=== PATIENT | female | born 1980 | race African-American/Black ===

== ENCOUNTER 2020-10-27 16:14 | Outpatient (REF) | payer OTHER, SELFPAY | END 2020-10-27 16:15 | disposition home or self-care (01) | LOC: HO.LAB 16:14 | PROVIDERS: PCP Internal Medicine; Visit Provider Internal Medicine | DX: Z20.828 Contact with and (suspected) exposure to other viral communicable diseases (principal) | CPT/HCPCS: C9803; U0003 ==

== ENCOUNTER 2020-11-05 11:30 | Outpatient (REF) | payer MEDICAID, SELFPAY | END 2020-11-05 11:31 | disposition home or self-care (01) | LOC: HO.LAB 11:30 | PROVIDERS: Visit Provider Internal Medicine | DX: Z20.828 Contact with and (suspected) exposure to other viral communicable diseases (principal) | CPT/HCPCS: C9803; U0003 ==

== ENCOUNTER 2021-04-12 22:51 | Emergency (ER) | payer OTHER, SELFPAY ==
--- NOTE | 2021-04-12 | ECG_ITS ---
Test Reason : CHEST PAIN Blood Pressure : / mmHG Vent. Rate : 071 BPM Atrial Rate : 071 BPM P-R Int : 138 ms QRS Dur : 074 ms QT Int : 392 ms P-R-T Axes : 064 010 003 degrees QTc Int : 425 ms Normal sinus rhythm Normal ECG When compared to the previous EKG of No significant changes seen Referred By: Damion Granados Electronically Signed By:Jorge Chapman
--- NOTE | ~2021-04-12 | XR_ITS ---
EXAMINATION: XR CHEST CLINICAL INFORMATION: Chest pain. COMPARISON: Most recent chest radiograph dated 02/13/2012. TECHNIQUE: Frontal view of the chest was obtained. FINDINGS: The lungs are clear. The cardiomediastinal silhouette is normal in size. There is no pleural effusion or pneumothorax. No acute osseous abnormality. XR/XR chest 1V IMPRESSION: No acute cardiopulmonary findings.
[2021-04-12 23:08] VITALS: BP 128/86; PULSE 86; RESP 18; TEMP 37.2; O2SAT 98; BMI 32.3
--- NOTE | 2021-04-12 23:38 | ED_ITS ---
HPI - Chest Pain General Chief Complaint: Chest Pain Stated Complaint: chest pain Time Seen by Provider: 04/12/21 23:38 Source: patient Mode of arrival: ambulatory Limitations: no limitations History of Present Illness HPI narrative: 40 year-old female came in for evaluation of chest pain. Pain started since 11:00 (greater than 12 hours ago), patient is mostly localized at the midsternum, patient also been having a right sided chest pain that radiates down to the right arm, pain is described as constant for the last 12 hours, severe 7/10, taking a deep breath making the pain worse, nothing relieves the pain. Patient had similar pain in the past seen by ED and was told costochondritis. Patient also was seen today at Urgent Care and she was advised to come to the emergency department for further evaluation. No personal or family history of PE/DVT, no recent travel or prolonged immobilization, no lower extremity swelling or tenderness. No family history of young age or MIs at young ages. Related Data Allergies Allergy/AdvReac Type Severity Reaction Status Date / Time No Known Allergies Allergy Verified 04/12/21 23:08 Review of Systems Review of Systems: All other systems are reviewed and are negative Constitutional: Reports as per HPI and Reports no additional constitutional complaints Eyes: Reports as per HPI and Reports no additional eye complaints Reports system reviewed and no additional complaints, except as documented Cardiovascular: Reports as per HPI and Reports no additional cardiovascular complaints Respiratory: Reports as per HPI and Reports no additional respiratory complaints Gastrointestinal: Reports as per HPI and Reports no additional gastrointestinal complaints Genitourinary: Reports no additional female genitourinary complaints Musculoskeletal: Reports no additional musculoskeletal complaints Skin/Breast: Reports system reviewed and no additional complaints, except as docu Psychiatric: Reports no additional psychiatric complaints Endocrine: Reports no additional endocrine complaints Hematologic/Lymphatic: Reports no additional hematologic/lymphatic complaints Allergic/Immunologic: Reports no additional allergic/immunologic complaints Reports system reviewed and no additional complaints, except as documented and Reports Abnormal speech present PMFSH Social History Social History Advance Directives: No Advance Directives Information Provided: No Patient : No Physical Exam Vital Signs: Vital Signs: Last Vital Signs Temp 98.9 F 04/12/21 23:08 Pulse 86 04/12/21 23:08 Resp 18 04/12/21 23:08 BP 128/86 04/12/21 23:08 Pulse Ox 98 04/12/21 23:08 Body Mass Index 32.3 Vital signs have been reviewed as appeared to be correct. Blood pressure normal. Heart rate normal. Respiration rate normal. Temperature normal. Oxygen saturation normal. Appearance: Alert. Oriented X3. No acute distress. Head: Normal external exam. Normocephalic. Atraumatic. No Schulz signs noted. No raccoon eyes noted Eyes: PERRLA. EOMI. Conjunctiva and sclera normal. Eyelids normal. ENT: TM's Normal. Pharynx normal. Uvula midline. Moist mucous membranes. No trismus noted. No drooling noted. No muffled voice noted. Neck: Normal inspection. Neck supple. FROM. No adenopathy. Thyroid Normal. No meningeal signs. No neck mass noted. CVS: Normal heart rate and rhythm. Heart sound normal. No murmurs noted. Pulses normal throughout. Respiratory: No respiratory distress. Painless inspiration. Breath sounds normal. No wheezes/rales/rhonchi noted. Chest noted to be tender on the mid sternum and on the right side of the sternum. No accessory muscle usage noted or decreased air movement noted. Abdomen: Soft and nontender. Bowel sounds normal in all 4 quadrants. No disten tion noted. No organomegaly noted. No visible injury noted. Back: No CVA tenderness. Full range of motion noted. Skin: Skin warm and dry. Normal skin color. Normal skin turgor. No rashes/lesions/lacerations noted. Extremities: No lower extremity edema. Extremities exhibit normal range of mo tion. Extremities nontender. Neuro: Oriented X 3. No motor deficit. No sensory deficit. Reflexes normal. Course Course Course Narrative: Assessment and plan. 40-year-old female came in with chest pain for greater than 12 hours pain is with taking a deep breath but it is constant, there is reproducible pain on the front of the chest consistent with costochondritis. Patient has HEART score of 0, very low risk for PE was slight elevation of D- dimer still within normal value. Advised the patient to start an NSAIDs and follow-up with PCP. [facility] - Chest Pain Lab Data Attestation: I reviewed the patient's lab results. Result diagrams: 04/12/21 23:42 04/12/21 23:42 Labs: Lab Results 04/12/21 04/12/21 04/12/21 Range/Units 23:42 23:42 23:42 WBC 5.7 (4.8-10.8) X10*3/uL RBC 4.05 L (4.20-5.50) X10*6/uL Hgb 12.6 (12.0-16.0) g/dl Hct 38.8 (37-47) % MCV 95.8 (80-98) fL MCH 31.1 (27.0-33.0) pg MCHC 32.5 (31.0-35.0) g/dl RDW 11.9 (11.0-16.0) % Plt Count 283 (160-400) X10*3/uL MPV 9.4 (9.4-12.3) fL Immature Gran % (Auto) 0.0 (0.0-0.4) % Neut % (Auto) 32.1 L (45-73) % Lymph % (Auto) 56.7 H (20-40) % [place] % (Auto) 8.6 (2-11) % Eos % (Auto) 1.9 (0-4) % Baso % (Auto) 0.7 (0-2) % Lymph # (Auto) 3.2 (1.2-4.9) X10*3/uL [place] # (Auto) 0.5 (0.1-1.2) X10*3/uL Eos # (Auto) 0.1 (0.0-0.4) X10*3/uL Baso # (Auto) 0.0 (0.0-0.2) X10*3/uL Abs Immat Gran (auto) 0.00 (0.00-0.03) X10*3/uL Absolute Neuts (auto) 1.8 L (2.0-8.3) X10*3/uL Absolute Nucleated RBC 0.000 (0.0-0.012) X10*3/uL Nucleated RBC % (auto) 0.0 (0.0-0.2) /100WBC D-Dimer NG/ML Sodium 144 (135-145) mmol/L Potassium 3.9 (3.3-5.1) mmol/L Chloride 107 (96-108) mmol/L Carbon Dioxide 27 (22-29) mmol/L Anion Gap 14 (12-20) BUN 17 H (9-16) mg/dL Creatinine 0.99 (0.5-1.4) mg/dL Estim Creat Clear Calc 76.9 Estimated GFR > 60 Random Glucose 90 (60-115) mg/dL Calcium 8.8 (8.4-10.2) mg/dL Troponin I High Sens < 3.5 (<3.5-17.0) ng/L 04/12/21 Range/Units 23:42 WBC (4.8-10.8) X10*3/uL RBC (4.20-5.50) X10*6/uL Hgb (12.0-16.0) g/dl Hct (37-47) % MCV (80-98) fL MCH (27.0-33.0) pg MCHC (31.0-35.0) g/dl RDW (11.0-16.0) % Plt Count (160-400) X10*3/uL MPV (9.4-12.3) fL Immature Gran % (Auto) (0.0-0.4) % Neut % (Auto) (45-73) % Lymph % (Auto) (20-40) % [place] % (Auto) (2-11) % Eos % (Auto) (0-4) % Baso % (Auto) (0-2) % Lymph # (Auto) (1.2-4.9) X10*3/uL [place] # (Auto) (0.1-1.2) X10*3/uL Eos # (Auto) (0.0-0.4) X10*3/uL Baso # (Auto) (0.0-0.2) X10*3/uL Abs Immat Gran (auto) (0.00-0.03) X10*3/uL Absolute Neuts (auto) (2.0-8.3) X10*3/uL Absolute Nucleated RBC (0.0-0.012) X10*3/uL Nucleated RBC % (auto) (0.0-0.2) /100WBC D-Dimer 240 NG/ML Sodium (135-145) mmol/L Potassium (3.3-5.1) mmol/L Chloride (96-108) mmol/L Carbon Dioxide (22-29) mmol/L Anion Gap (12-20) BUN (9-16) mg/dL Creatinine (0.5-1.4) mg/dL Estim Creat Clear Calc Estimated GFR Random Glucose (60-115) mg/dL Calcium (8.4-10.2) mg/dL Troponin I High Sens (<3.5-17.0) ng/L Imaging Data Chest x-ray: Radiologist's impression: No acute cardiopulmonary findings. ECG Data ECG #1: Interpretation: Normal sinus rhythm at 71 beats per minutes, normal axis deviation, normal intervals, no ST-T changes. Discharge Plan Discharge Clinical Impression: Chest pain, Costalchondritis Patient Disposition: Home, Self-Care Instructions: Costochondritis (ED) Referrals: Physician,Unknown [Primary Care Provider] - 2 days
[2021-04-13 00:01] LABS: MANUAL DIFF FLAG NO
[2021-04-13 00:03] LABS: Basophils Percent Auto 0.7 % (0-2); Eosinophils Absolute Auto 0.1 X10*3/uL (0.0-0.4); Eosinophils Percent Auto 1.9 % (0-4); Hematocrit 38.8 % (37-47); Hemoglobin 12.6 g/dl (12.0-16.0); Lymphocytes Absolute Auto 3.2 X10*3/uL (1.2-4.9); Lymphocytes Percent Auto 56.7 % (20-40); Mean Corpuscular HGB Conc 32.5 g/dl (31.0-35.0); Mean Corpuscular Hemoglobin 31.1 pg (27.0-33.0); Mean Corpuscular Volume 95.8 fL (80-98); Mean Platelet Volume 9.4 fL (9.4-12.3); Monocytes Absolute Auto 0.5 X10*3/uL (0.1-1.2); Monocytes Percent Auto 8.6 % (2-11); Neutrophils Absolute Auto 1.8 X10*3/uL (2.0-8.3); Neutrophils Percent Auto 32.1 % (45-73); Platelet Count 283 X10*3/uL (160-400); Red Blood Count 4.05 X10*6/uL (4.20-5.50); Red Cell Distribution Width 11.9 % (11.0-16.0); White Blood Count 5.7 X10*3/uL (4.8-10.8)
[2021-04-13 00:12] LABS: D Dimer 240 NG/ML
[2021-04-13 00:23] LABS: Anion Gap 14 (12-20); Blood Urea Nitrogen 17 mg/dL (9-16); Calcium 8.8 mg/dL (8.4-10.2); Carbon Dioxide 27 mmol/L (22-29); Chloride 107 mmol/L (96-108); Creatinine Clr Calc Pharmacy 76.9; Estimated Glomerular Filt Rate > 60; Glucose Random 90 mg/dL (60-115); Potassium 3.9 mmol/L (3.3-5.1); Sodium 144 mmol/L (135-145)
[2021-04-13 00:28] LABS: Troponin-I High Sensitivity < 3.5 ng/L (<3.5-17.0)
== END 2021-04-13 01:36 | disposition home or self-care (01) ==
PROVIDERS: Internal Medicine; Emergency Provider Emergency Medicine
DX: R07.9 Chest pain, unspecified (principal); M94.0 Chondrocostal junction syndrome [Tietze]
CPT/HCPCS: 36415; 71045; 80048; 84484; 85025; 85379; 93005; 99283; 99284

== ENCOUNTER 2021-06-02 20:45 | Emergency (ER) | payer OTHER, SELFPAY ==
--- NOTE | ~2021-06-02 | XR_ITS ---
EXAMINATION: XR CHEST CLINICAL INFORMATION: Shortness of breath. Cough. COMPARISON: Chest x-ray April 12, 2021 TECHNIQUE: Frontal view of the chest was obtained. FINDINGS: No significant abnormality is noted involving the heart, lungs, mediastinum, bony thorax or soft tissues. XR/XR chest 1V IMPRESSION: Unremarkable examination.
[2021-06-02 21:11] VITALS: BP 128/77; PULSE 74; RESP 16; TEMP 37.1; O2SAT 100; BMI 34.3
[2021-06-02 21:30] LABS: MANUAL DIFF FLAG NO
[2021-06-02 21:36] LABS: Basophils Absolute Auto 0.1 X10*3/uL (0.0-0.2); Basophils Percent Auto 0.8 % (0-2); Eosinophils Absolute Auto 0.1 X10*3/uL (0.0-0.4); Eosinophils Percent Auto 2.1 % (0-4); Hematocrit 38.6 % (37-47); Hemoglobin 12.5 g/dl (12.0-16.0); Imm Gran Abs Auto 0.01 X10*3/uL (0.00-0.03); Imm Gran Pct Auto 0.2 % (0.0-0.4); Lymphocytes Absolute Auto 2.4 X10*3/uL (1.2-4.9); Lymphocytes Percent Auto 39.9 % (20-40); Mean Corpuscular HGB Conc 32.4 g/dl (31.0-35.0); Mean Corpuscular Hemoglobin 30.7 pg (27.0-33.0); Mean Corpuscular Volume 94.8 fL (80-98); Mean Platelet Volume 9.1 fL (9.4-12.3); Monocytes Absolute Auto 0.4 X10*3/uL (0.1-1.2); Monocytes Percent Auto 7.2 % (2-11); Neutrophils Percent Auto 49.8 % (45-73); Platelet Count 279 X10*3/uL (160-400); Red Blood Count 4.07 X10*6/uL (4.20-5.50); Red Cell Distribution Width 11.9 % (11.0-16.0); White Blood Count 6.1 X10*3/uL (4.8-10.8)
--- NOTE | 2021-06-02 21:52 | ED.GENADULT ---
HPI - General Adult General Chief complaint: General Medical Stated complaint: SOB/vomiting Time Seen by Provider: 06/02/21 21:52 Source: patient Mode of arrival: ambulatory Limitations: no limitations History of Present Illness HPI narrative: vomiting all day, fatigue, headache all today. Unsure about . Denies fever at home Onset (ago): hour(s) Related Data Previous Rx's Medication Instructions Recorded ondansetron HCl [Zofran] 4 mg PO Q8H PRN #10 tab 06/03/21 Allergies Allergy/AdvReac Type Severity Reaction Status Date / Time No Known Allergies Allergy Verified 06/02/21 21:17 Review of Systems Constitutional: Constitutional: Reports no additional constitutional complaints Eyes: Eyes: Reports no additional eye complaints ENT: Denies dizziness Cardiovascular: Cardiovascular: Reports no additional cardiovascular complaints Respiratory: Respiratory: Reports as per HPI Gastrointestinal: Gastrointestinal: Reports no additional gastrointestinal complaints Genitourinary: Genitourinary: Reports no additional female genitourinary complaints Musculoskeletal: Musculoskeletal: Reports no additional musculoskeletal complaints Integumentary/Breasts: Skin/Breast: Denies rash Neurologic: Reports system reviewed and no additional complaints, except as documented, Denies dizziness and Denies Sensory deficit (Neuro) Psychiatric: Psychiatric: Denies anxiety PMFSH Past Medical History Medical History Migraine No known health problems Social History Social History Alcohol intake: current Alcohol intake frequency: a few times a week Patient Tobacco Use Status: Never used Tobacco Smoked in Last 30 Days: No Use of substances other than those prescribed or required for medical reasons: No Advance Directives: No Advance Directives Information Provided: Yes Patient : No Physical Exam Vital Signs: Vital Signs: Last Vital Signs Temp 98.8 F 06/02/21 21:11 Pulse 67 06/02/21 22:00 Resp 18 06/02/21 22:00 BP 124/63 06/02/21 22:00 Pulse Ox 100 06/02/21 22:00 Body Mass Index 34.3 Const: Other: patient appearing nauseaus and weak Nutritional Appearance: average body habitus Orientation/consciousness: oriented to person and patient oriented x3 Limitations: no limitations HENMT: Head: Yes normal to inspection Ears: external ears normal General nose exam: Normal external nose present Mouth: Normal oral and palatal mucosa present and oropharynx normal Throat: Yes posterior oropharynx normal Eyes: General: appearance normal, both eyes and all related structures Neck: Other: supple Neck: Yes normal visual inspection Chest: Chest palpation & inspection: normal inspection of the chest Resp: Auscultation: clear to auscultation bilaterally Cardio: Jugular venous distension: no JVD Rate: regular rate Rhythm: regular rhythm Heart sounds: S1 normal heart sound present and S2 normal heart sound present GI: Inspection: Yes normal to inspection Palpation (GI): Soft to palpation, nontender and No hepatosplenomegaly present Auscultation: normal bowel sounds : General: Yes no CVA tenderness Back/Spine/Pelvis: Back: no CVA tenderness Skin: General skin exam: no rashes or lesions noted Neuro: General: oriented to person and patient oriented x3 Cranial nerves: Yes CN's II-XII intact bilaterally Motor exam (neuro): 5/5 motor strength present throughout Sensory Exam: No Sensory deficit (Neuro) Extrem: General: Yes normal to inspection Psych: Appearance: grossly normal Course Reevaluation(s) Reevaluation #1: abdomen soft nontender patient patient still complaining of headache and nausea Time: 00:12 Reevaluation #2: no more nausea patient sleeping. Will dc home Time: 01:15 Medical Decision Making Lab Data Result diagrams: 06/02/21 21:26 06/02/21 21:26 Labs: Lab Results 06/02/21 06/02/21 06/02/21 Range/Units 21:26 21:26 21:26 WBC 6.1 (4.8-10.8) X10*3/uL RBC 4.07 L (4.20-5.50) X10*6/uL Hgb 12.5 (12.0-16.0) g/dl Hct 38.6 (37-47) % MCV 94.8 (80-98) fL MCH 30.7 (27.0-33.0) pg MCHC 32.4 (31.0-35.0) g/dl RDW 11.9 (11.0-16.0) % Plt Count 279 (160-400) X10*3/uL MPV 9.1 L (9.4-12.3) fL Immature Gran % (Auto) 0.2 (0.0-0.4) % Neut % (Auto) 49.8 (45-73) % Lymph % (Auto) 39.9 (20-40) % [place] % (Auto) 7.2 (2-11) % Eos % (Auto) 2.1 (0-4) % Baso % (Auto) 0.8 (0-2) % Lymph # (Auto) 2.4 (1.2-4.9) X10*3/uL [place] # (Auto) 0.4 (0.1-1.2) X10*3/uL Eos # (Auto) 0.1 (0.0-0.4) X10*3/uL Baso # (Auto) 0.1 (0.0-0.2) X10*3/uL Abs Immat Gran (auto) 0.01 (0.00-0.03) X10*3/uL Absolute Neuts (auto) 3.0 (2.0-8.3) X10*3/uL Absolute Nucleated RBC 0.000 (0.0-0.012) X10*3/uL Nucleated RBC % (auto) 0.0 (0.0-0.2) /100WBC Sodium 142 (135-145) mmol/L Potassium 4.0 (3.3-5.1) mmol/L Chloride 108 (96-108) mmol/L Carbon Dioxide 22 (22-29) mmol/L Anion Gap 16 (12-20) BUN 8 L D (9-16) mg/dL Creatinine 0.83 (0.5-1.4) mg/dL Estim Creat Clear Calc 94.8 Estimated GFR > 60 Random Glucose 87 (60-115) mg/dL Calcium 9.0 (8.4-10.2) mg/dL Urine Color Urine Appearance Urine pH (5.0-8.0) Ur Specific [place] (1.005-1.025) Urine Protein (NEG-TRACE) MG/DL Urine Glucose (UA) (NEG) MG/DL Urine Ketones (NEG) MG/DL Urine Blood (NEG) Urine Nitrite (NEG) Ur Leukocyte Esterase (NEG) Urine RBC (0) /HPF Urine WBC (0-4) /HPF Ur Squamous Epith Cells /LPF Urine Bacteria /LPF Urine Mucus /LPF Urine Test (NEGATIVE) COVID-19 (JUANCARLOS) Negative (Negative) COVID-19 Clin Com See Note 06/02/21 06/02/21 Range/Units 22:09 22:10 WBC (4.8-10.8) X10*3/uL RBC (4.20-5.50) X10*6/uL Hgb (12.0-16.0) g/dl Hct (37-47) % MCV (80-98) fL MCH (27.0-33.0) pg MCHC (31.0-35.0) g/dl RDW (11.0-16.0) % Plt Count (160-400) X10*3/uL MPV (9.4-12.3) fL Immature Gran % (Auto) (0.0-0.4) % Neut % (Auto) (45-73) % Lymph % (Auto) (20-40) % [place] % (Auto) (2-11) % Eos % (Auto) (0-4) % Baso % (Auto) (0-2) % Lymph # (Auto) (1.2-4.9) X10*3/uL [place] # (Auto) (0.1-1.2) X10*3/uL Eos # (Auto) (0.0-0.4) X10*3/uL Baso # (Auto) (0.0-0.2) X10*3/uL Abs Immat Gran (auto) (0.00-0.03) X10*3/uL Absolute Neuts (auto) (2.0-8.3) X10*3/uL Absolute Nucleated RBC (0.0-0.012) X10*3/uL Nucleated RBC % (auto) (0.0-0.2) /100WBC Sodium (135-145) mmol/L Potassium (3.3-5.1) mmol/L Chloride (96-108) mmol/L Carbon Dioxide (22-29) mmol/L Anion Gap (12-20) BUN (9-16) mg/dL Creatinine (0.5-1.4) mg/dL Estim Creat Clear Calc Estimated GFR Random Glucose (60-115) mg/dL Calcium (8.4-10.2) mg/dL Urine Color YELLOW Urine Appearance CLEAR Urine pH 6.5 (5.0-8.0) Ur Specific [place] 1.025 (1.005-1.025) Urine Protein NEG (NEG-TRACE) MG/DL Urine Glucose (UA) NEG (NEG) MG/DL Urine Ketones NEG (NEG) MG/DL Urine Blood TRACE (NEG) Urine Nitrite NEG (NEG) Ur Leukocyte Esterase NEG (NEG) Urine RBC 1-4 (0) /HPF Urine WBC 0-2 (0-4) /HPF Ur Squamous Epith Cells TRACE /LPF Urine Bacteria TRACE /LPF Urine Mucus TRACE /LPF Urine Test NEGATIVE (NEGATIVE) COVID-19 (JUANCARLOS) (Negative) COVID-19 Clin Com Discharge Plan Discharge Clinical Impression: Nausea Headache Qualifiers: Headache type: unspecified Headache chronicity pattern: unspecified pattern Intractability: not intractable Qualified Code(s): R51.9 - Headache, unspecified Patient Disposition: Home, Self-Care Instructions: Acute Headache (ED), Acute Nausea and Vomiting (ED) Prescriptions: New ondansetron HCl [Zofran] 4 mg tablet 4 mg PO Q8H PRN (Reason: nausea and vomiting) Qty: 10 RF: 0 Referrals: Richelle Nathan MD [Primary Care Provider] - 5 days
[2021-06-02 21:55] LABS: COVID-19 Test Negative (Negative); IDNOW Serial# 9DD0AD1C
[2021-06-02 22:00] VITALS: BP 124/63; PULSE 67; RESP 18; O2SAT 100
[2021-06-02 22:02] LABS: Anion Gap 16 (12-20); Blood Urea Nitrogen 8 mg/dL (9-16); Carbon Dioxide 22 mmol/L (22-29); Chloride 108 mmol/L (96-108); Creatinine Clr Calc Pharmacy 94.8; Estimated Glomerular Filt Rate > 60; Glucose Random 87 mg/dL (60-115); Sodium 142 mmol/L (135-145)
[2021-06-02] MEDS: 0.9 % Sodium Chloride 1,000 ML 999 ML IVCONT ×2 (22:14→23:42)
[2021-06-02] MEDS: ondansetron HCL 4 MG/2 ML VIAL IVPUSH (22:14)
[2021-06-02] MEDS: Pantoprazole Sodium 40 MG/10 ML VIAL IVPUSH (22:15)
[2021-06-02 22:25] LABS: Glucose Urine UA NEG (NEG); Leukocyte Esterase Urine NEG (NEG); Nitrite Urine NEG (NEG); PH 6.5 (5.0-8.0); Specific Gravity - Urine 1.025 (1.005-1.025); Urine Blood TRACE (NEG); Urine Ketones NEG (NEG); Urine Protein NEG (NEG-TRACE)
[2021-06-02 22:29] LABS: UPreg QC Valid YES; Urine Pregnancy NEGATIVE (NEGATIVE)
[2021-06-02 22:29] LABS: Appearance Urine CLEAR; Color Urine YELLOW
[2021-06-02 22:41] LABS: Bacteria Urine TRACE /LPF; Mucus Urine TRACE /LPF; Squamous Epithelial Cell Urine TRACE /LPF; WBC Urine 0-2 /HPF (0-4)
[2021-06-03] MEDS: Acetaminophen 325 MG TABLET 975 MG PO (00:33)
--- NOTE | 2021-06-03 01:38 | PC.NURSE ---
d/c by kinjal mclaughlin. no questions
== END 2021-06-03 01:38 | disposition home or self-care (01) ==
PROVIDERS: Emergency Provider Emergency Medicine; PCP Internal Medicine
DX: R51.9 Headache, unspecified (principal); R11.0 Nausea; Z20.822 Contact with and (suspected) exposure to COVID-19
CPT/HCPCS: 36415; 71045; 80048; 81001; 81025; 85025; 87635; 96361; 96374; 96375; 99284; J2405; J2550

== ENCOUNTER 2021-08-16 04:32 | Emergency (ER) | payer OTHER, SELFPAY ==
--- NOTE | ~2021-08-16 | XR_ITS ---
EXAMINATION: XR SHOULDER, RIGHT CLINICAL INFORMATION: Pain and swelling. Question dislocation. COMPARISON: None TECHNIQUE: Three views of the right shoulder. FINDINGS: No fracture or dislocation. The glenohumeral joint is well aligned. The joint space is maintained. The acromioclavicular joint is intact. The visualized lung is clear. The visualized ribs are intact. XR/XR shoulder RT min 2V IMPRESSION: Normal right shoulder.
[2021-08-16 04:35] VITALS: BP 112/79; PULSE 89; RESP 16; TEMP 36.7; O2SAT 98; BMI 32.9
--- NOTE | 2021-08-16 05:05 | PC.NURSE ---
MD at bedside for primary eval. Plan for UA and DDimer.
--- NOTE | 2021-08-16 05:15 | PC.NURSE ---
Labs and UA obtained and sent.
[2021-08-16 05:18] LABS: Appearance Urine CLEAR; Color Urine YELLOW; Glucose Urine UA NEG (NEG); Leukocyte Esterase Urine NEG (NEG); Nitrite Urine NEG (NEG); Specific Gravity - Urine <= 1.005 (1.005-1.025); UACC Culture Trigger NO; Urine Blood TRACE (NEG); Urine Ketones NEG (NEG); Urine Protein NEG (NEG-TRACE)
--- NOTE | 2021-08-16 05:20 | ED_ITS ---
HPI - Extremity Problem General Chief complaint: Extremity Problem Stated complaint: swollen right side Time Seen by Provider: 08/16/21 04:38 Source: patient Mode of arrival: ambulatory History of Present Illness HPI Narrative: 40-year-old female without significant past medical history presents with acute onset of right shoulder and shoulder blade pain after she was braiding her hair. Patient states that since that time the pain has wo rsened and she is having difficulty with moving her arm. Patient denies any history of recent travel, personal history of blood clots, denies any fevers, chills, falls and states that she is having intermittent tingling in her distal fingers since this started. She states that she tried to go to sleep, but could not because of the pain. Patient states that she feels like her upper chest is also swollen and otherwise denies any nausea, vomiting, abdominal discomfort. Related Data Previous Rx's Medication Instructions Recorded ondansetron HCl 4 mg tablet 4 mg PO Q8H PRN #10 tab 06/03/21 (Zofran) ketorolac 10 mg tablet 10 mg PO Q6H PRN 5 Days #20 tab 08/16/21 Allergies Allergy/AdvReac Type Severity Reaction Status Date / Time No Known Allergies Allergy Verified 08/16/21 04:35 Review of Systems Review of Systems: Pertinent positives and negatives as stated in HPI 10 point review of systems is otherwise negative. PMFSH Past Medical History Source: nursing notes reviewed Medical History Migraine No known health problems Social History Social History Alcohol intake: current Alcohol intake frequency: a few times a week Patient Tobacco Use Status: Never used Tobacco Advance Directives: No Advance Directives Information Provided: Yes Physical Exam Vital Signs: Vital Signs: Last Vital Signs Temp 98.1 F 08/16/21 04:35 Pulse 89 08/16/21 04:35 Resp 16 08/16/21 04:35 BP 112/79 08/16/21 04:35 Pulse Ox 98 08/16/21 04:35 Body Mass Index 32.9 VITAL SIGNS: Reviewed. GENERAL: Well developed, well nourished, in no acute distress. HEAD: Normocephalic/atraumatic EYES: PERRLA, EOMI LUNGS: Normal breath sounds. No adventitious sounds or accessory muscle use. SpO2<98>, chest wall without apparent swelling and examination of axilla was negative for evidence of any folliculitis or masses CARDIOVASCULAR: Regular rate and rhythm without noted murmurs ABDOMEN: Soft, non-tender, non-distended with bowel sounds, no CVA tenderness. RIGHT SHOULDER: There is the appearance of swelling over the anterior portion of the shoulder without erythema or induration and presence of full range of motion with discomfort, palpable ulnar and radial pulses with capillary refill less than 3 seconds. NEUROLOGIC: Alert and oriented x 4. Course Course Course Narrative: 40-year-old female with history and clinical presentation consistent with likely impingement syndrome and less likely shoulder dislocation although the appearance is questionable for shoulder dislocation. Review of all investigations negative for acute findings and on reassessment after patient received combination analgesics she reports some improvement in her pain but states that is still uncomfortable. All results and findings were discussed with her. MDM - Extremity (Nontraumatic) Lab Data Labs: Lab Results 08/16/21 08/16/21 08/16/21 Range/Units 05:10 05:10 05:11 D-Dimer < 200 NG/ML Urine Color YELLOW Urine Appearance CLEAR Urine pH 6.0 (5.0-8.0) Ur Specific [place] <= 1.005 (1.005-1.025) Urine Protein NEG (NEG-TRACE) MG/DL Urine Glucose (UA) NEG (NEG) MG/DL Urine Ketones NEG (NEG) MG/DL Urine Blood TRACE (NEG) Urine Nitrite NEG (NEG) Ur Leukocyte Esterase NEG (NEG) Urine RBC 1-4 (0) /HPF Urine WBC 1-4 (0-4) /HPF Ur Squamous Epith Cells 1+ /LPF Urine Bacteria 1+ /LPF Urine Test NEGATIVE (NEGATIVE) Discharge Plan Discharge Clinical Impression: Acute pain of right shoulder Patient Disposition: Home, Self-Care Instructions: Shoulder Pain (ED) Additional Instructions: 1. Tylenol 1000 mg, orally, every 6 hours as needed for pain control. Do not exceed 4000 mg within 24 hours. 2. Lidocaine patch, this is available [id number] and should be apply to area of maximal tenderness as directed on the outside packaging. 3. Follow-up with your primary care provider in next 2-3 days for re-evaluation and further outpatient management. Return to the ER for acute worsening of symptoms. Prescriptions: New ketorolac 10 mg tablet 10 mg PO Q6H PRN (Reason: pain) 5 Days Qty: 20 RF: 0 No Action ondansetron HCl [Zofran] 4 mg tablet 4 mg PO Q8H PRN (Reason: nausea and vomiting) Qty: 10 RF: 0 Referrals: Richelle Nathan MD [Primary Care Provider] - 2 days Stand Alone Forms: Work/School Release
[2021-08-16 05:21] LABS: UPreg QC Valid YES; Urine Pregnancy NEGATIVE (NEGATIVE)
[2021-08-16 05:23] LABS: Bacteria Urine 1+ /LPF; Squamous Epithelial Cell Urine 1+ /LPF
[2021-08-16 05:31] LABS: D Dimer < 200 NG/ML
--- NOTE | 2021-08-16 05:37 | PC.NURSE ---
Pt returns from XRay at this time.
[2021-08-16] MEDS: Acetaminophen 325 MG TABLET 975 MG PO (05:41)
[2021-08-16] MEDS: Ketorolac Tromethamine 15 MG/ML VIAL IM (05:42)
== END 2021-08-16 06:33 | disposition home or self-care (01) ==
PROVIDERS: Emergency Provider Student in an Organized Health Care Education/Training Program; PCP Internal Medicine
DX: M25.511 Pain in right shoulder (principal); Z79.899 Other long term (current) drug therapy
CPT/HCPCS: 36415; 73030; 81001; 81025; 85379; 96372; 99283; 99284; J1885

== ENCOUNTER 2021-11-16 13:59 | Outpatient (REF) | payer OTHER, SELFPAY ==
[2021-11-16 14:28] LABS: Binax Internal Control QC Valid; Binax Lot number: 9864; Binax Now Covid-19 Ag Negative (Negative)
== END 2021-11-16 14:00 | disposition home or self-care (01) ==
LOC: HO.LAB 13:59
PROVIDERS: Visit Provider Internal Medicine
DX: Z20.822 Contact with and (suspected) exposure to COVID-19 (principal)
CPT/HCPCS: 36415

== ENCOUNTER 2022-02-18 14:41 | Emergency (ER) | payer OTHER, SELFPAY ==
--- NOTE | ~2022-02-18 | CT_ITS ---
EXAMINATION: CT ABDOMEN AND PELVIS WITHOUT CONTRAST CLINICAL INFORMATION: Flank pain hematuria COMPARISON: CT abdomen pelvis 01/18/2017 TECHNIQUE: Multidetector volumetric imaging was performed from the superior aspect of the liver through the pubic symphysis. Sagittal and coronal reformatted images were obtained on the technologist's workstation. This CT examination was performed using dose optimization techniques as appropriate, variously including the following: *Automated exposure control *Adjustment of mA and/or kV according to patient size (this includes techniques or standardized protocols for targeted exams where dose is matched to indication/reason for exam; i.e. extremities or head) *Use of iterative reconstruction technique DLP: 724 mGy-cm FINDINGS: LUNG BASES: Unremarkable. ABDOMINAL AND PELVIC WALL: Unremarkable. LIVER AND BILIARY TREE: Unremarkable. GALLBLADDER: Status post cholecystectomy. PANCREAS: Unremarkable. SPLEEN: Unremarkable. ADRENAL GLANDS: Unremarkable. KIDNEYS AND URETERS: No hydronephrosis or nephrolithiasis. GASTROINTESTINAL TRACT: Postsurgical changes of gastric sleeve. Large and small bowel are unremarkable. Normal appendix. VASCULAR: Unremarkable. LYMPH NODES/PERITONEUM: No lymphadenopathy. FREE FLUID: None. BLADDER: Unremarkable. PELVIC VISCERA: Several myometrial calcifications again seen. OSSEOUS STRUCTURES: Sclerosis along the right sacroiliac joint. Grade 1 anterolisthesis of L3 on L4 with advanced degenerative endplate changes at this level progressed from 2017 with bilateral L3 pars defects. CT/CT abdomen pelvis wo con IMPRESSION: No hydronephrosis or nephrolithiasis. 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 Grade 1 anterolisthesis of L3 on L4 with advanced degenerative endplate changes at this level progressed from 2017 with bilateral L3 pars defects.
[2022-02-18 14:56] VITALS: BP 124/85; PULSE 102; RESP 18; TEMP 36.7; O2SAT 97; BMI 32.8
[2022-02-18 15:54] LABS: Appearance Urine HAZY; Color Urine YELLOW; Glucose Urine UA NEG (NEG); Leukocyte Esterase Urine NEG (NEG); Nitrite Urine NEG (NEG); Specific Gravity - Urine 1.015 (1.005-1.025); UACC Culture Trigger NO; Urine Blood 3+ (NEG); Urine Ketones NEG (NEG); Urine Protein NEG (NEG-TRACE)
[2022-02-18 16:38] LABS: Bacteria Urine 1+ /LPF; RBC Urine 50-75 /HPF (0); Squamous Epithelial Cell Urine 2+ /LPF
[2022-02-18 18:11] LABS: MANUAL DIFF FLAG NO
[2022-02-18 18:12] LABS: Basophils Percent Auto 0.5 % (0-2); Eosinophils Absolute Auto 0.1 X10*3/uL (0.0-0.4); Eosinophils Percent Auto 1.4 % (0-4); Imm Gran Abs Auto 0.01 X10*3/uL (0.00-0.03); Imm Gran Pct Auto 0.1 % (0.0-0.4); Lymphocytes Absolute Auto 2.8 X10*3/uL (1.2-4.9); Lymphocytes Percent Auto 35.5 % (20-40); Mean Corpuscular HGB Conc 31.7 g/dl (31.0-35.0); Mean Corpuscular Hemoglobin 30.4 pg (27.0-33.0); Mean Platelet Volume 9.4 fL (9.4-12.3); Monocytes Absolute Auto 0.8 X10*3/uL (0.1-1.2); Monocytes Percent Auto 10.4 % (2-11); Neutrophils Absolute Auto 4.1 x10*3/uL (2.0-8.3); Neutrophils Percent Auto 52.1 % (45-73); Platelet Count 289 X10*3/uL (160-400); Red Blood Count 4.27 X10*6/uL (4.20-5.50); Red Cell Distribution Width 11.9 % (11.0-16.0); White Blood Count 7.9 X10*3/uL (4.8-10.8)
[2022-02-18 18:29] LABS: Alanine Aminotransferase 14 U/L (0-31); Alkaline Phosphatase 100 U/L (39-117); Anion Gap 12 (12-20); Aspartate Amino Transferase 19 U/L (5-31); Bilirubin Direct 0.2 mg/dL (0.0-0.5); Bilirubin Total 0.6 mg/dL (0.0-1.0); Blood Urea Nitrogen 14 mg/dL (9-16); Calcium 9.1 mg/dL (8.4-10.2); Carbon Dioxide 27 mmol/L (22-29); Chloride 104 mmol/L (96-108); Creatinine Clr Calc Pharmacy 90.4; Estimated Glomerular Filt Rate > 60; Glucose Random 101 mg/dL (60-115); Potassium 4.1 mmol/L (3.3-5.1); Sodium 139 mmol/L (135-145); Total Protein 7.2 g/dL (6.5-8.0)
[2022-02-18 18:40] LABS: IDNOW Serial# 55D5AD1C; Influenza A Negative (Negative); Influenza B2 Negative (Negative)
--- NOTE | 2022-02-18 18:49 | ED_ITS ---
HPI - General Adult General Chief complaint: General Medical Stated complaint: sinus congestion, headache x6days back ache Time Seen by Provider: 02/18/22 17:40 Source: patient Mode of arrival: ambulatory Limitations: no limitations History of Present Illness HPI narrative: 41-year-old female here with reports of 7 days of sore throat, cough who went to Urgent Care today with reports of right-sided back pain which is worsened with movement here with same complaints. Patient was seen at urgent care. She had negative COVID in flu testing per patient. She had a urine that showed microscopic hematuria and was sent into the ER due to the complaints of flank pain with hematuria. Patient has no urinary symptoms. No nausea, vomiting, fevers. Related Data Previous Rx's Medication Instructions Recorded ondansetron HCl 4 mg tablet 4 mg PO Q8H PRN #10 tab 06/03/21 (Zofran) cyclobenzaprine 10 mg tablet 10 mg PO BEDTIME #14 tab 08/18/21 meloxicam 15 mg tablet 15 mg PO DAILY #14 tab 08/18/21 cyclobenzaprine 10 mg tablet 10 mg PO TID PRN #14 tab 02/18/22 lidocaine 5 % topical patch 1 patch TOPICAL DAILY #15 ea 02/18/22 (Lidoderm) naproxen 500 mg tablet 500 mg PO BID PRN #20 tab 02/18/22 Allergies Allergy/AdvReac Type Severity Reaction Status Date / Time No Known Allergies Allergy Verified 08/17/21 14:41 Review of Systems Review of Systems: Yes all other systems are reviewed and are negative Constitutional: Constitutional: Reports no additional constitutional complaints, Denies body ache(s), Denies chills, Denies fever(s), Denies headache(s) and Denies weakness Eyes: Eyes: Reports no additional eye complaints and Denies change in vision ENT: Reports system reviewed and no additional complaints, except as documented, Denies dizziness, Denies headache(s), Denies nasal congestion, Reports nasal discharge, Denies neck pain and Reports sore throat Cardiovascular: Cardiovascular: Reports no additional cardiovascular complaints, Denies chest pain, Denies leg edema and Denies dyspnea Respiratory: Respiratory: Reports no additional respiratory complaints, Denies cough and Denies dyspnea Gastrointestinal: Gastrointestinal: Reports no additional gastrointestinal complaints, Denies abdominal pain, Denies diarrhea, Denies nausea and Denies vomiting Genitourinary: Genitourinary: Reports no additional female genitourinary complaints and Denies urinary incontinence Musculoskeletal: Musculoskeletal: Reports no additional musculoskeletal complaints, Reports back pain, Denies arthralgias, Denies joint swelling, Denies neck pain, Denies numbness and Denies tingling Integumentary/Breasts: Skin/Breast: Reports system reviewed and no additional complaints, except as docu and Denies rash Neurologic: Reports system reviewed and no additional complaints, except as documented, Denies dizziness, Denies headache(s), Denies numbness, Denies tingling and Denies weakness [facility] Past Medical History Attestation statement: The following information was validated with the patient. Source: old records reviewed and nursing notes reviewed Medical History Bipolar 1 disorder Lumbar herniated disc Migraine No known health problems Surgical History H/O gastric sleeve Hx of cholecystectomy Social History Social History Alcohol intake: current Alcohol intake frequency: a few times a week Patient Tobacco Use Status: Never used Tobacco Advance Directives: No Advance Directives Information Provided: No Physical Exam ED Vital Signs: Vital Signs - 24 hr 02/18/22 14:56 02/18/22 19:19 Temperature 98.0 F Pulse Rate 102 H Respiratory Rate 18 16 Blood Pressure 124/85 Pulse Oximetry 97 BMI result Body Mass Index 32.8 Const General: cooperative, healthy appearing, comfortable and no acute distress Orientation/consciousness: patient oriented x3 Limitations: no limitations HENMT Head: Yes normal to inspection Ears: hearing grossly normal bilaterally and TM's normal bilaterally General nose exam: Normal external nose present Face and sinus: Yes normal facial exam Mouth: Normal oral and palatal mucosa present Teeth and gingiva: dentition normal Throat: Yes posterior oropharynx normal, Yes tonsils normal and Yes uvula midline Eyes General: appearance normal, both eyes and all related structures Pupils: Equal, round and reactive pupils present Neck Neck: Yes normal visual inspection, Yes full ROM, Yes no lymphadenopathy and Yes no meningeal signs Chest Chest palpation & inspection: normal inspection of the chest Resp Effort & Inspection: normal respiratory effort Auscultation: clear to auscultation bilaterally Cardio Rate: regular rate Rhythm: regular rhythm Peripheral pulses: Peripheral pulses 2+ throughout GI Inspection: Yes normal to inspection Palpation (GI): Soft to palpation and nontender Back/Spine/Pelvis Other: Patient has mild right CVA tenderness and tenderness over the lumbar soft tissue area on the right side that is worsened with flexion and extension of the lumbar spine. Skin General skin exam: no rashes or lesions noted Neuro General: patient oriented x3, moves all extremities, no meningeal signs and Unable to assess gait Cranial nerves: Yes CN's II-XII intact bilaterally, Yes Equal, round and re active pupils present, Yes Bilaterally intact EOM present, Yes Nystagmus not present, Yes Normal facial strength present and Yes Midline tongue present Cognition (Neuro): normal cognition Gait exam (Neuro): Unable to assess gait Motor exam (neuro): 5/5 motor strength present throughout Sensory Exam: Normal double simultaneous stimulation for sensation Course Course Course Narrative: 41-year-old female here with URI symptoms for the last week which are mild the patient tells me they are actually improving, and right sided back pain x several days. Seen at and referred in to the ER d/t flank pain with associ ated microscopic hematuria. -will check labs, UA, flu testing, CT of hematuria noted to rule out colic Reevaluation(s) Reevaluation #1: CT shows degenerative changes of the low spine and right pelvis but no signs of pyelonephritis or renal colic. Labs are unremarkable. UA shows microscopic hematuria but no evidence of UTI. Flu testing is negative. Discussed that patient may have some musculoskeletal back pain from her recent viral illness. Discussed going home with NSAIDs, muscle relaxant and medicated patches. No evidence of saddle anesthesia, incontinence within normal neurological exam. Recommend follow-up with primary care doctor for persistent pain and return here for any worrisome signs and symptoms. Time: 21:00 Medical Decision Making MDM Narrative Medical decision making narrative: Perc score 0 Low concern for epidural abscess with no saddle anesthesia, neuro deficits, risk of IV drug abuse or immunocompromised state. No concern for cauda equine with normal neurological exam with no saddle anesthesia or incontinence Medical Records Medical records reviewed: Yes I reviewed the patient's medical records. Lab Data Lab results reviewed: Yes I reviewed the patient's lab results. Result diagrams: 02/18/22 18:05 02/18/22 18:05 Labs: Lab Results 02/18/22 02/18/22 02/18/22 Range/Units 15:23 18:05 18:05 WBC 7.9 (4.8-10.8) X10*3/uL RBC 4.27 (4.20-5.50) X10*6/uL Hgb 13.0 (12.0-16.0) g/dl Hct 41.0 (37.0-47.0) % MCV 96.0 (80.0-98.0) fL MCH 30.4 (27.0-33.0) pg MCHC 31.7 (31.0-35.0) g/dl RDW 11.9 (11.0-16.0) % Plt Count 289 (160-400) X10*3/uL MPV 9.4 (9.4-12.3) fL Immature Gran % (Auto) 0.1 (0.0-0.4) % Neut % (Auto) 52.1 (45-73) % Lymph % (Auto) 35.5 (20-40) % [place] % (Auto) 10.4 (2-11) % Eos % (Auto) 1.4 (0-4) % Baso % (Auto) 0.5 (0-2) % Lymph # (Auto) 2.8 (1.2-4.9) X10*3/uL [place] # (Auto) 0.8 (0.1-1.2) X10*3/uL Eos # (Auto) 0.1 (0.0-0.4) X10*3/uL Baso # (Auto) 0.0 (0.0-0.2) X10*3/uL Abs Immat Gran (auto) 0.01 (0.00-0.03) X10*3/uL Absolute Neuts (auto) 4.1 (2.0-8.3) x10*3/uL Absolute Nucleated RBC 0.000 (0.0-0.012) X10*3/uL Nucleated RBC % (auto) 0.0 (0.0-0.2) /100WBC Sodium 139 (135-145) mmol/L Potassium 4.1 (3.3-5.1) mmol/L Chloride 104 (96-108) mmol/L Carbon Dioxide 27 (22-29) mmol/L Anion Gap 12 (12-20) BUN 14 (9-16) mg/dL Creatinine 0.84 (0.5-1.4) mg/dL Estim Creat Clear Calc 90.4 Estimated GFR > 60 Random Glucose 101 (60-115) mg/dL Calcium 9.1 (8.4-10.2) mg/dL Total Bilirubin 0.6 (0.0-1.0) mg/dL Direct Bilirubin 0.2 (0.0-0.5) mg/dL AST 19 (5-31) U/L ALT 14 (0-31) U/L Alkaline Phosphatase 100 (39-117) U/L Total Protein 7.2 (6.5-8.0) g/dL Albumin 4.0 (3.5-5.0) g/dL Urine Color YELLOW Urine Appearance HAZY Urine pH 6.0 (5.0-8.0) Ur Specific [place] 1.015 (1.005-1.025) Urine Protein NEG (NEG-TRACE) MG/DL Urine Glucose (UA) NEG (NEG) MG/DL Urine Ketones NEG (NEG) MG/DL Urine Blood 3+ H (NEG) Urine Nitrite NEG (NEG) Ur Leukocyte Esterase NEG (NEG) Urine RBC 50-75 H (0) /HPF Urine WBC 1-4 (0-4) /HPF Ur Squamous Epith Cells 2+ /LPF Urine Bacteria 1+ /LPF Urine Test (NEGATIVE) Influenza Type A (YURI) (Negative) Influenza Type B (YURI) (Negative) Influenza A & B Note 02/18/22 02/18/22 Range/Units 18:05 Unknown WBC (4.8-10.8) X10*3/uL RBC (4.20-5.50) X10*6/uL Hgb (12.0-16.0) g/dl Hct (37.0-47.0) % MCV (80.0-98.0) fL MCH (27.0-33.0) pg MCHC (31.0-35.0) g/dl RDW (11.0-16.0) % Plt Count (160-400) X10*3/uL MPV (9.4-12.3) fL Immature Gran % (Auto) (0.0-0.4) % Neut % (Auto) (45-73) % Lymph % (Auto) (20-40) % [place] % (Auto) (2-11) % Eos % (Auto) (0-4) % Baso % (Auto) (0-2) % Lymph # (Auto) (1.2-4.9) X10*3/uL [place] # (Auto) (0.1-1.2) X10*3/uL Eos # (Auto) (0.0-0.4) X10*3/uL Baso # (Auto) (0.0-0.2) X10*3/uL Abs Immat Gran (auto) (0.00-0.03) X10*3/uL Absolute Neuts (auto) (2.0-8.3) x10*3/uL Absolute Nucleated RBC (0.0-0.012) X10*3/uL Nucleated RBC % (auto) (0.0-0.2) /100WBC Sodium (135-145) mmol/L Potassium (3.3-5.1) mmol/L Chloride (96-108) mmol/L Carbon Dioxide (22-29) mmol/L Anion Gap (12-20) BUN (9-16) mg/dL Creatinine (0.5-1.4) mg/dL Estim Creat Clear Calc Estimated GFR Random Glucose (60-115) mg/dL Calcium (8.4-10.2) mg/dL Total Bilirubin (0.0-1.0) mg/dL Direct Bilirubin (0.0-0.5) mg/dL AST (5-31) U/L ALT (0-31) U/L Alkaline Phosphatase (39-117) U/L Total Protein (6.5-8.0) g/dL Albumin (3.5-5.0) g/dL Urine Color Urine Appearance Urine pH (5.0-8.0) Ur Specific [place] (1.005-1.025) Urine Protein (NEG-TRACE) MG/DL Urine Glucose (UA) (NEG) MG/DL Urine Ketones (NEG) MG/DL Urine Blood (NEG) Urine Nitrite (NEG) Ur Leukocyte Esterase (NEG) Urine RBC (0) /HPF Urine WBC (0-4) /HPF Ur Squamous Epith Cells /LPF Urine Bacteria /LPF Urine Test NEGATIVE (NEGATIVE) Influenza Type A (YURI) Negative (Negative) Influenza Type B (YURI) Negative (Negative) Influenza A & B Note See Note Imaging Data CT scan - abdomen: Attestation: I personally reviewed and interpreted this imaging study as follows: Radiologist's impression: No hydronephrosis or nephrolithiasis. ? 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 ? Grade 1 anterolisthesis of L3 on L4 with advanced degenerative endplate changes at this level progressed from 2017 with bilateral L3 pars defects.? ? Discharge Plan Discharge Clinical Impression: Lumbar strain, Hematuria, microscopic Patient Disposition: Home, Self-Care Instructions: Hematuria (ED), Back Pain (ED) Additional Instructions: Heat or ice to the area Gentle stretching No heavy lifting or bending Testing for flu is negative Your urine shows microscopic hematuria. Please follow-up with her primary care doctor in regards to this. Your CT shows degenerative changes in the lower spine Prescriptions: New naproxen 500 mg tablet 500 mg PO BID PRN (Reason: pain) Qty: 20 0RF cyclobenzaprine 10 mg tablet 10 mg PO TID PRN (Reason: muscle spasm) Qty: 14 0RF lidocaine [Lidoderm] 5 % adhesive patch,medicated 1 patch topical DAILY Qty: 15 0RF Rx Instructions: leave on most painful area for up to 12 hrs No Action meloxicam 15 mg tablet 15 mg PO DAILY Qty: 14 0RF cyclobenzaprine 10 mg tablet 10 mg PO BEDTIME Qty: 14 0RF ondansetron HCl [Zofran] 4 mg tablet 4 mg PO Q8H PRN (Reason: nausea and vomiting) Qty: 10 0RF Referrals: Physician,Unknown J [Primary Care Provider] - 5 days (Your primary care doctor) Stand Alone Forms: Work/School Release
[2022-02-18] MEDS: Ketorolac Tromethamine 30 MG/ML VIAL IVPUSH (18:50)
[2022-02-18 19:19] VITALS: RESP 16
[2022-02-18 19:40] LABS: UPreg QC Valid YES; Urine Pregnancy NEGATIVE (NEGATIVE)
[2022-02-18] MEDS: Lidocaine 4 % Patch ADH..PATCH 1 PATCH TRANSDERMA (20:58)
[2022-02-18] MEDS: Cyclobenzaprine HCl 10 MG TABLET PO (20:59)
== END 2022-02-18 21:06 | disposition home or self-care (01) ==
PROVIDERS: Nurse Practitioner Family; Emergency Provider Emergency Medicine
DX: M54.50 Low back pain, unspecified (principal); R51.9 Headache, unspecified; R31.9 Hematuria, unspecified; R09.81 Nasal congestion; Z79.899 Other long term (current) drug therapy
CPT/HCPCS: 74176; 80048; 80076; 81001; 81003; 81025; 85025; 87502; 99284; J1885

== ENCOUNTER 2022-12-21 07:45 | Emergency (ER) | payer OTHER, SELFPAY ==
--- NOTE | ~2022-12-21 | XR_ITS ---
EXAMINATION: XR CHEST CLINICAL INFORMATION: Chest pain. COMPARISON: 06/02/2021 chest radiograph. TECHNIQUE: Frontal view of the chest was obtained. FINDINGS: No significant abnormality is noted involving the heart, lungs, mediastinum, bony thorax or soft tissues. XR/XR chest 1V IMPRESSION: No acute cardiopulmonary process.
--- NOTE | ~2022-12-21 | CT_ITS ---
EXAMINATION: CT ABDOMEN AND PELVIS WITH CONTRAST CLINICAL INFORMATION: Epigastric and right flank pain, nausea and vomiting. COMPARISON: CT scan of the abdomen and pelvis dated 02/28/2022. TECHNIQUE: Multidetector volumetric images were obtained from the superior aspect of the liver through the pubic symphysis following administration 85 mL of Omnipaque 350 intravenous contrast. Sagittal and coronal reformatted images were obtained on the technologist's workstation. Oral contrast: No This CT examination was performed using dose optimization techniques as appropriate, variously including the following: *Automated exposure control *Adjustment of mA and/or kV according to patient size (this includes techniques or standardized protocols for targeted exams where dose is matched to indication/reason for exam; i.e. extremities or head) *Use of iterative reconstruction technique DLP: 896 mGy-cm FINDINGS: LUNG BASES: The visualized lung bases are unremarkable. LIVER, GALLBLADDER, AND BILIARY TREE: No hepatic abnormality. Status post cholecystectomy. PANCREAS: Unremarkable. SPLEEN: Unremarkable. Tiny splenule inferiorly. ADRENAL GLANDS: Unremarkable. KIDNEYS AND URETERS: Tiny low-attenuation focus in the upper pole of the right kidney, too small to adequately characterize but without significant change not requiring follow-up. No nephrolithiasis or hydroureteronephrosis. BLADDER: Unremarkable. GASTROINTESTINAL TRACT: Gastric postsurgical changes without associated abnormality. The small bowel and appendix are unremarkable. Increased mural fatty infiltration is seen in the ascending colon. Overall minimally distended colon with associated mild mural thickening. No significant pericolonic abnormality. The rectum is unremarkable. ABDOMINAL WALL: No significant hernia is appreciated. LYMPH NODES: Normal. VASCULAR: Multiple phleboliths in the pelvis. PELVIC VISCERA: Anteverted/anteflexed uterus with small coarse myometrial calcifications. No adnexal abnormality. OSSEOUS STRUCTURES: Moderate to severe degenerative disc disease is seen at L3-4 and L4-5, more pronounced at L3-4 with minimal grade 1 anterolisthesis and bilateral spondylolysis. Sclerosis is seen in the adjacent vertebral body endplates. No acute abnormality. CT/CT abdomen pelvis w IV con IMPRESSION: 1. Increased mural fatty infiltration of the ascending colon without acute features can be seen as sequelae of previous colitis. Mild diffuse mural thickening in the colon without significant pericolonic abnormality is likely secondary to incomplete distention. No definitive active colitis. If symptoms persist or worsen, short-term repeat CT follow-up is recommended to better assess for short-term change.
[2022-12-21 07:47] VITALS: BP 143/87; PULSE 80; RESP 18; TEMP 36; O2SAT 98; BMI 36.8
[2022-12-21 08:18] VITALS: BP 122/81; PULSE 67; RESP 20; TEMP 36.9; O2SAT 97
--- NOTE | 2022-12-21 08:23 | ED_ITS ---
HPI - Nausea/Vomiting/Diarrhea General Chief complaint: Nausea/Vomiting/Diarrhea Stated complaint: sent by doctor. vomiting, Chest tightness, back pa Time Seen by Provider: 12/21/22 08:08 Source: patient Mode of arrival: ambulatory Limitations: no limitations History of Present Illness HPI Narrative: 42 year old female w/PMHx bipolar, migraines, gastric sleeve who presents to the ED with 3 days of nausea, vomiting, fatigue, right flank pain radiating to suprapubic region, and chest pressure. Chest pain intermittent described as burning/tightness, radiating to throat. Also reports concentrated urine and mild decreased p.o. intake. denies trauma, fever, chills, SOB, dysuria/hematuria, vaginal bleeding/discharge MD elicited complaint: nausea, vomiting, abdominal pain, flank pain and other Pertinent past history: abdominal surgery (cholecystectomy, gastric sleeve) Related Data Previous Rx's Medication Instructions Recorded ondansetron HCl 4 mg tablet 4 mg PO Q8H PRN nausea and 06/03/21 (Zofran) vomiting #10 tabs cyclobenzaprine 10 mg tablet 10 mg PO BEDTIME #14 tabs 08/18/21 meloxicam 15 mg tablet 15 mg PO DAILY #14 tabs 08/18/21 cyclobenzaprine 10 mg tablet 10 mg PO TID PRN muscle spasm #14 02/18/22 tabs lidocaine 5 % topical patch 1 patch topical DAILY #15 ea 02/18/22 (Lidoderm) naproxen 500 mg tablet 500 mg PO BID PRN pain #20 tabs 02/18/22 ondansetron 4 mg disintegrating 4 mg PO Q8H PRN nausea and 12/21/22 tablet vomiting #10 tabs Allergies Allergy/AdvReac Type Severity Reaction Status Date / Time No Known Allergies Allergy Verified 08/17/21 14:41 Review of Systems Review of Systems: Constitutional: No Fever, No Chills, No Malaise, + fatigue ENT/Mouth: No Ear Pain, No Nasal Congestion, No sore throat, No Rhinorrhea, No Swallowing Difficulty Eyes: No Eye Pain, No Swelling, No Redness, No Vision Changes Cardiovascular: + Chest Pain, No SOB, No Edema, No Palpitations Respiratory: No Cough, No Dyspnea Gastrointestinal: + Nausea, + Vomiting, No Diarrhea, No Constipation, + Abdominal pain, No Hematochezia, No Melena Genitourinary: No irregular bleeding, No Dysuria, No Urinary Frequency, No Hematuria, No Urinary Incontinence/retention, No Urgency, + Flank Pain, No Urinary Flow Changes, No Hesitancy, Musculoskeletal: No joint pain, No Myalgias Skin: No Skin Lesions, No rash Neuro: No Weakness, No Headache Yes all other systems are reviewed and are negative Constitutional: Constitutional: Reports as per HPI Genitourinary: Comments: endorses darker urine PMFSH Past Medical History Attestation statement: The following information was validated with the patient. Medical History Bipolar 1 disorder Lumbar herniated disc Migraine No known health problems Surgical History H/O gastric sleeve Hx of cholecystectomy Social History Social History Alcohol intake: unknown Patient Tobacco Use Status: Never used Tobacco Use of substances other than those prescribed or required for medical reasons: Unknown Advance Directives: No Advance Directives Information Provided: Yes Patient : No Physical Exam Vital Signs: Vital Signs: Last Vital Signs Temp 98.4 F 12/21/22 08:18 Pulse 67 12/21/22 08:18 Resp 20 12/21/22 08:18 BP 122/81 12/21/22 08:18 Pulse Ox 97 12/21/22 08:18 O2 Del Method 12/21/22 08:18 BMI result Body Mass Index 36.8 Const: General: cooperative, healthy appearing, comfortable and no acute distress Orientation/consciousness: patient oriented x3 Limitations: no limitations HEENT: Head: Yes normal to inspection and Yes atraumatic Ears: hearing grossly normal bilaterally General nose exam: Normal external nose present Face and sinus: Yes normal facial exam Eyes: General: appearance normal, both eyes and all related structures EOM: EOMs intact bilaterally Neck: Neck: Yes normal visual inspection and Yes no meningeal signs Resp: Effort & Inspection: normal respiratory effort and no respiratory distress Auscultation: clear to auscultation bilaterally, no crackles, no rales, no rhonchi and no wheezes Cardio: Rate: regular rate Rhythm: regular rhythm Heart sounds: S1 normal heart sound present and S2 normal heart sound present GI: Inspection: Yes normal to inspection Palpation (GI): Soft to palpation, Tenderness to palpation present (GI) at McBurney's point and suprapubicly; Walker's sign negative, obturator sign negative, psoas sign negative, with no rebound tenderness and Rovsing's sign negative, no guarding and not rigid Auscultation: normal bowel sounds : General: Yes CVA tenderness on the right Back/Spine/Pelvis: Back: CVA tenderness Skin: Rashes: no rashes Wounds: no wounds Neuro: General: patient oriented x3, tone normal and no meningeal signs Gait exam (Neuro): Normal gait present Extrem: General: Yes normal to inspection Course Course Course Narrative: -1022--slight leukopenia, bilirubin mildly elevated, troponin negative, labs otherwise reassuring -UA contaminated XR chest 1V IMPRESSION: No acute cardiopulmonary process. ? CT abdomen pelvis w IV con IMPRESSION: ? 1. Increased mural fatty infiltration of the ascending colon without acute features can be seen as sequelae of previous colitis. Mild diffuse mural thickening in the colon without significant pericolonic abnormality is likely secondary to incomplete distention. No definitive active colitis. If symptoms persist or worsen, short-term repeat CT follow-up is recommended to better assess for short-term change. >> patient tolerating p.o. in the ED without difficulty. > Results discussed with patient including worrisome signs and symptoms and strict return precautions, and when to return to the emergency department. They verbalized understanding and feel safe for discharge at this time. Medications Administered Discontinued Medications Generic Name Dose Route Start Last Admin Trade Name Freq PRN Reason Stop Dose Admin Al Hydroxide/Mg Hydroxide 30 ml 12/21/22 08:25 12/21/22 09:05 Magnesium Hydrox/Alum Hydrox 30 Ml Oral.Susp PO 12/21/22 08:26 30 ml ONCE ONE Administration Famotidine 20 mg 12/21/22 08:25 12/21/22 09:04 Famotidine/Pf 20 Mg/2 Ml Vial IVPUSH 12/21/22 08:26 20 mg ONCE ONE Administration Sodium Chloride 1,000 mls @ 999 mls/hr 12/21/22 09:15 12/21/22 10:10 Ns IV 12/21/22 10:15 Infused .Q1H1M JUDI Infusion Iohexol 100 ml 12/21/22 10:10 12/21/22 10:10 Iohexol 350 Mg/Ml 100 Ml Infus..Btl IV 12/21/22 10:11 85 ml ONCE ONE Administration Ondansetron HCl 4 mg 12/21/22 09:36 12/21/22 09:46 Ondansetron Hcl 4 Mg/2 Ml Vial IVPUSH 12/21/22 09:37 4 mg ONCE ONE Administration Medical Decision Making Medical Decision Making MDM Narrative: 42 year old female w/PMHx bipolar, migraines, gastric sleeve who presents to the ED with 3 days of nausea, vomiting, fatigue, right flank pain radiating to suprapubic region, and chest pressure. On exam vital signs stable, NAD, nontoxic appearing, lungs CTA, abdomen soft with epigastric and suprapubic tenderness, right CVA tenderness noted. No rebound or guarding. Concern for GERD/gastritis vs pancreatitis vs UTI/pyelo or renal stone vs appendicitis. Lower suspicion for cholecystitis/lithiasis, diverticulitis, ovarian torsion, pneumonia, ACS or PE Plan: EKG, labs, UA, , CXR, CT AP, IVF, GI cocktail, re-evaluate Please refer to course for remaining clinical decision making, interpretation of labs/imaging results, and discussions with consultants and/or family members. Differential Diagnosis Differential Diagnoses: The differential diagnosis associated with the presentation includes as above Lab Data [facility] Lab Attestation statement: I reviewed the patient's lab results. 12/21/22 08:59 12/21/22 08:59 Labs: Lab Results 12/21/22 12/21/22 12/21/22 Range/Units 08:59 08:59 08:59 WBC 4.6 L (4.8-10.8) X10*3/uL RBC 4.48 (4.20-5.50) X10*6/uL Hgb 13.5 (12.0-16.0) g/dl Hct 41.4 (37.0-47.0) % MCV 92.4 (80.0-98.0) fL MCH 30.1 (27.0-33.0) pg MCHC 32.6 (31.0-35.0) g/dl RDW 12.3 (11.0-16.0) % Plt Count 306 (160-400) X10*3/uL MPV 9.4 (9.4-12.3) fL Immature Gran % (Auto) 0.0 (0.0-0.4) % Neut % (Auto) 45.9 (45-73) % Lymph % (Auto) 43.3 H (20-40) % [place] % (Auto) 9.0 (2-11) % Eos % (Auto) 1.1 (0-4) % Baso % (Auto) 0.7 (0-2) % Lymph # (Auto) 2.0 (1.2-4.9) X10*3/uL [place] # (Auto) 0.4 (0.1-1.2) X10*3/uL Eos # (Auto) 0.1 (0.0-0.4) X10*3/uL Baso # (Auto) 0.0 (0.0-0.2) X10*3/uL Abs Immat Gran (auto) 0.00 (0.00-0.03) X10*3/uL Absolute Neuts (auto) 2.1 (2.0-8.3) x10*3/uL Absolute Nucleated RBC 0.000 (0.0-0.012) X10*3/uL Nucleated RBC % (auto) 0.0 (0.0-0.2) /100WBC Sodium 141 (135-145) mmol/L Potassium 3.8 (3.3-5.1) mmol/L Chloride 104 (96-108) mmol/L Carbon Dioxide 25 (22-29) mmol/L Anion Gap 16 (12-20) BUN 9 (9-16) mg/dL Creatinine 0.95 (0.5-1.4) mg/dL Estim Creat Clear Calc 84.2 Estimated GFR > 60 Random Glucose 103 (60-115) mg/dL Calcium 9.7 D (8.4-10.2) mg/dL Magnesium 1.9 (1.6-2.6) mg/dL Total Bilirubin 1.6 H (0.0-1.0) mg/dL Direct Bilirubin 0.4 (0.0-0.5) mg/dL AST 23 (5-31) U/L ALT 16 (0-31) U/L Alkaline Phosphatase 117 (39-117) U/L Troponin I High Sens < 3.5 (<3.5-17.0) ng/L Total Protein 7.6 (6.5-8.0) g/dL Albumin 4.3 (3.5-5.0) g/dL Lipase 17 (8-78) U/L Urine Color Urine Appearance Urine pH (5.0-9.0) Ur Specific [place] (1.005-1.025) Urine Protein (Neg-Trace) mg/dL Urine Glucose (UA) (Negative) mg/dL Urine Ketones (Negative) mg/dL Urine Blood (Negative) Urine Nitrite (Negative) Ur Leukocyte Esterase (Negative) Urine RBC (0-2) /HPF Urine WBC (0-5) /HPF Ur Squamous Epith Cells (0-2) /HPF Urine Bacteria (None Seen) Hyaline Casts (0-2) /LPF Urine Test (NEGATIVE) 12/21/22 12/21/22 Range/Units 08:59 09:00 WBC (4.8-10.8) X10*3/uL RBC (4.20-5.50) X10*6/uL Hgb (12.0-16.0) g/dl Hct (37.0-47.0) % MCV (80.0-98.0) fL MCH (27.0-33.0) pg MCHC (31.0-35.0) g/dl RDW (11.0-16.0) % Plt Count (160-400) X10*3/uL MPV (9.4-12.3) fL Immature Gran % (Auto) (0.0-0.4) % Neut % (Auto) (45-73) % Lymph % (Auto) (20-40) % [place] % (Auto) (2-11) % Eos % (Auto) (0-4) % Baso % (Auto) (0-2) % Lymph # (Auto) (1.2-4.9) X10*3/uL [place] # (Auto) (0.1-1.2) X10*3/uL Eos # (Auto) (0.0-0.4) X10*3/uL Baso # (Auto) (0.0-0.2) X10*3/uL Abs Immat Gran (auto) (0.00-0.03) X10*3/uL Absolute Neuts (auto) (2.0-8.3) x10*3/uL Absolute Nucleated RBC (0.0-0.012) X10*3/uL Nucleated RBC % (auto) (0.0-0.2) /100WBC Sodium (135-145) mmol/L Potassium (3.3-5.1) mmol/L Chloride (96-108) mmol/L Carbon Dioxide (22-29) mmol/L Anion Gap (12-20) BUN (9-16) mg/dL Creatinine (0.5-1.4) mg/dL Estim Creat Clear Calc Estimated GFR Random Glucose (60-115) mg/dL Calcium (8.4-10.2) mg/dL Magnesium (1.6-2.6) mg/dL Total Bilirubin (0.0-1.0) mg/dL Direct Bilirubin (0.0-0.5) mg/dL AST (5-31) U/L ALT (0-31) U/L Alkaline Phosphatase (39-117) U/L Troponin I High Sens (<3.5-17.0) ng/L Total Protein (6.5-8.0) g/dL Albumin (3.5-5.0) g/dL Lipase (8-78) U/L Urine Color Yellow Urine Appearance Clear Urine pH 7.0 (5.0-9.0) Ur Specific [place] <= 1.005 (1.005-1.025) Urine Protein Negative (Neg-Trace) mg/dL Urine Glucose (UA) Negative (Negative) mg/dL Urine Ketones Negative (Negative) mg/dL Urine Blood Small (1+) H (Negative) Urine Nitrite Negative (Negative) Ur Leukocyte Esterase Trace H (Negative) Urine RBC 0-2 (0-2) /HPF Urine WBC 0-5 (0-5) /HPF Ur Squamous Epith Cells 6-10 (0-2) /HPF Urine Bacteria None Seen (None Seen) Hyaline Casts 0-2 (0-2) /LPF Urine Test NEGATIVE (NEGATIVE) Independent Interpretation I performed an independent interpretation of an: EKG Interpretation: EKG normal sinus rhythm with sinus arrhythmia rate of 66. NE interval 154. QTC 72. No STEMI. Radiology Impression Discussion of test interpretation with radiology: I have reviewed the radiologist's reading. Independent Historian Clinical information obtained from an independent historian. History obtained from or confirmed by: Friend External Record Review External record reviewed: Office record Prescription Management I considered prescription management with: Pain Medication and Antibiotic Discharge Plan Discharge Clinical Impression: Colitis Patient Disposition: Home, Self-Care Instructions: Colitis (ED) Additional Instructions: Your blood work was reassuring. Her urine is unremarkable. Her CT scan shows possible colitis which is inflammation of her colon. Please practice a bland diet, avoid spicy foods, sweets, chocolate, caffeine. Please stay hydrated. Zofran as an antinausea medication take as needed. If her unable to eat or drink, have fever or chills, persistent nausea/vomiting return to the ED Prescriptions: New ondansetron 4 mg tablet,disintegrating 4 mg PO Q8H PRN (Reason: nausea and vomiting) Qty: 10 0RF No Action meloxicam 15 mg tablet 15 mg PO DAILY Qty: 14 0RF cyclobenzaprine 10 mg tablet 10 mg PO BEDTIME Qty: 14 0RF ondansetron HCl [Zofran] 4 mg tablet 4 mg PO Q8H PRN (Reason: nausea and vomiting) Qty: 10 0RF naproxen 500 mg tablet 500 mg PO BID PRN (Reason: pain) Qty: 20 0RF cyclobenzaprine 10 mg tablet 10 mg PO TID PRN (Reason: muscle spasm) Qty: 14 0RF lidocaine [Lidoderm] 5 % adhesive patch,medicated 1 patch topical DAILY Qty: 15 0RF Rx Instructions: leave on most painful area for up to 12 hrs Referrals: [facility] [place] [facility] [Provider Group] (as needed) Physician,Unknown J [Primary Care Provider] -
--- NOTE | 2022-12-21 08:25 | ECG_ITS ---
Test Reason : CHEST PAIN Blood Pressure : / mmHG Vent. Rate : 066 BPM Atrial Rate : 066 BPM P-R Int : 154 ms QRS Dur : 072 ms QT Int : 414 ms P-R-T Axes : 060 017 011 degrees QTc Int : 434 ms Normal sinus rhythm with sinus arrhythmia Normal ECG When compared with ECG of 12-APR-2021 22:59, No significant change was found Referred By: Corinne Rosenberg Electronically Signed By:FRANSISCO MICHAELS MD
--- OUTSIDE RECORDS SUMMARY | 2022-12-21 08:31 | XMS_ITS | Continuity of Care Document ---
:1980 Author Organization [facility] Address Unavailable , Care Team Providers Name Role Phone Kaela Isabel Gold DO Primary Care Physician [place] [facility] [place]21 [facility] Attending Physician: Mikey Grey Admitting Physician: Mikey Grey Referring Physician: trMikey Allergies, Adverse Reactions, Alerts No Known Allergies Medications doxycycline hyclate 100 mg oral capsule 1 capsule = 100 mg, By Mouth, 2 times a day, start 2 days prior to procedure, # 10 capsule, 0 Refills, Maintenance, 10/26/21 13:32:00 EST, [facility]/pharmacy #[id number], Partial fill upon patient request if the prescription is for a schedule II opioid drug., 160... Start Date: 10/26/21 Stop Date: 10/31/21 Status: OrderedPrenatal Multivitamins By Mouth, Daily, 0 Refills, Maintenance, 09/08/21 9:10:00 EDT, Partial fill upon patient request if the prescription is for a schedule II opioid drug. Start Date: 09/08/21 Status: Ordered Problem List Condition Effective Dates Status Health Status Informant Mild binge-eating disorder, in partial Active remission(Confirmed) Morbid obesity(Confirmed) Active Social History Social History Type Response Smoking Status Never smoker entered on: 04/23/14 Sex
--- OUTSIDE RECORDS SUMMARY | 2022-12-21 08:31 | XMS_ITS | Continuity of Care Document ---
:1980 Author Organization [facility] Address Unavailable , Care Team Providers Name Role Phone Dianelyschristopher Isabel Gold DO Primary Care Physician [place] [facility] [place] 10/27/21 [facility] Allergies, Adverse Reactions, Alerts Substance Reaction Severity Status NKA Active Medications doxycycline hyclate 100 mg oral capsule 1 capsule = 100 mg, By Mouth, 2 times a day, start 2 days prior to procedure, # 10 capsule, 0 Refills, Maintenance, 10/26/21 13:32:00 EST, [facility]/pharmacy #[id number], Partial fill upon patient request if [...]
--- OUTSIDE RECORDS SUMMARY | 2022-12-21 08:31 | XMS_ITS | Continuity of Care Document ---
:1980 Author Organization [facility] Address Unavailable , Care Team Providers Name Role Phone Kaela porfirioIsabel tello DO Primary Care Physician [id number] Date(s): 11/01/21 - 11/08/21 [facility] Attending Physician: Denae Valderrama MD Referring Physician: Edita Jauregui MD Allergies, Adverse Reactions, Alerts Substance Reaction Severity Status NKA Active Medications doxycycline hyclate 100 mg oral capsule 1 capsule = 100 mg, By Mouth, 2 times a day, start 2 days prior to procedure, # 10 capsule, 0 Refills, Maintenance, 10/26/21 13:32:00 EST, [facility]/pharmacy #[id number], Partial fill upon patient request if [...]
--- OUTSIDE RECORDS SUMMARY | 2022-12-21 08:31 | XMS_ITS | Continuity of Care Document ---
:1980 Author Organization [address] [place] [id number]- Care Team Providers Name Role Phone Isabel Meza DO Primary Care Physician En[place] [facility] [place] Date(s): 07/20/22 - 08/19/[address] [place] [id number] Allergies, Adverse Reactions, Alerts No Known Allergies Medications doxycycline hyclate 100 mg oral capsule 1 capsule = 100 mg, By Mouth, 2 times a day, start 2 days prior to procedure, # 10 capsule, 0 Refills, Maintenance, 10/26/21 13:32:00 EST, [facility]/pharmacy #[id number], Partial fill upon patient request if the prescription is for a schedule II opioid drug., 160... Start Date: 10/26/21 Stop Date: 10/31/21 Status: OrderedPrenatal Multivitamins By Mouth, Daily, 0 Refills, Maintenance, 09/08/21 9:10:00 EDT, Partial fill upon patient request if the prescription is for a schedule II opioid drug. Start Date: 09/08/21 Status: Ordered Problem List Condition Confirmation Course Effective Dates Status Health Stat us Informant Mild binge-eating Confirmed Active disorder, in partial remission Morbid obesity Confirmed Active Social History Social History Type Response Smoking Status Never smoker entered on: 04/23/14 Sex Patient Care team information PersonnelName: Isabel Meza DO Address: Address: [facility] [place] [address]-
--- OUTSIDE RECORDS SUMMARY | 2022-12-21 08:31 | XMS_ITS | Continuity of Care Document ---
:1980 Author Organization [facility] Address Unavailable , Care Team Providers Name Role Phone Richelle Nathan MD Primary Care Physician [place] [facility] [place](s): 10/29/21 - 11/28/21 [facility] Allergies, Adverse Reactions, Alerts No Known Allergies Medications cyclobenzaprine 10 mg oral tablet 10 mg, 1, tablet, By Mouth, 3 times a day, PRN, # 15 tablet, Refills 0, Tot. Refills 0, Acute 12/02/21 12:26:00 EST, for spasm, 11/22/21 12:26:00 EST, Route to Pharmacy Electronically, [facility]/pharmacy #[id number], Partial fill upon patient request if the presc... Start Date: 11/22/21 Stop Date: 12/02/21 Status: Ordereddoxycycline hyclate 100 mg oral capsule 1 capsule [...]
--- OUTSIDE RECORDS SUMMARY | 2022-12-21 08:31 | XMS_ITS | Continuity of Care Document ---
:1980 Author Organization [facility] Address Unavailable , Care Team Providers Name Role Phone Isabel Meza DO Primary Care Physician [place] [facility] [place] 10/23/21 [facility] Allergies, Adverse Reactions, Alerts Substance Reaction Severity Status NKA Active Medications Multivitamins By Mouth, Daily, 0 Refills, Maintenance, [...]
--- OUTSIDE RECORDS SUMMARY | 2022-12-21 08:31 | XMS_ITS | Continuity of Care Document ---
:1980 Author Organization [facility] Address [address] [place] [address]- Care Team Providers Name Role Phone Richelle Nathan MD Primary Care Physician [place] [facility] [place] - 11/22/[address] [address]- Encounter Diagnosis 2019 novel coronavirus disease (COVID-19) (Final) - 11/22/21 Discharge Disposition: A-D/C Home Attending Physician: Lizz Chavira MD Admitting Physician: Lizz Chavira MD Referring Physician: Not on Staff, Referring MD Allergies, Adverse Reactions, Alerts Substance Reaction Severity Status NKA Active Medications cyclobenzaprine 10 mg oral tablet 10 mg, 1, tablet, By Mouth, 3 times a day, PRN, # 15 tablet, Refills 0, Tot. Refills 0, Acute 12/02/21 12:26:00 EST, for spasm, 11/22/21 12:26:00 EST, Route to Pharmacy Electronically, [facility]/pharmacy #[id number], Partial fill upon patient request if [...] Start Date: 10/26/21 Stop Date: 10/31/21 Status: OrderedFlexeril 10 mg oral tablet 10 mg, Tablet, By Mouth, Once, Routine, 11/22/21 12:00:00 EST, Stop date 11/22/21 12:00:00 EST Start Date: 11/22/21 Stop Date: 11/22/21 Status: CompletedPrenatal Multivitamins By Mouth, Daily, 0 Refills, Maintenance, 09/08/21 9:10:00 EDT, Partial fill upon patient request if the prescription is for a schedule II opioid drug. Start Date: 09/08/21 Status: Ordered Problem List Condition Effective Dates Status Health Status Informant Mild binge-eating disorder, in partial Active remission(Confirmed) Morbid obesity(Confirmed) Active Vital Signs Most recent to oldest [Reference Range]: 1 2 Oxygen Saturation [94-100 %] 100 % 100 % (11/22/21 12:16 PM) (11/22/21 10:03 AM) Pulse Rate [55-90 bpm] 75 bpm 69 bpm (11/22/21 12:16 PM) (11/22/21 10:03 AM) Blood Pressure [90-138/55-84 mm Hg] 129/91 mm Hg 123/ 83 mm Hg (11/22/21 12:16 PM) (11/22/21 10:03 AM) Respiratory Rate [16-30 br/min] 18 br/min 19 br/mi n (11/22/21 11:06 AM) (11/22/21 10:03 AM) Temperature [96.8-100.4 DegF] 98.5 DegF 98.5 DegF (11/22/21 12:16 PM) (11/22/21 10:03 AM) Liters per Minute 0 L/min (11/22/21 10:03 AM) Mode of Delivery (Oxygen) Room air (11/22/21 10:03 AM) Blood pressure sites Arm, right (11/22/21 10:03 AM) Temperature Route Oral (11/22/21 10:03 AM) Social History Social History Type Response Smoking Status Never smoker entered on: 04/23/14 Sex
--- OUTSIDE RECORDS SUMMARY | 2022-12-21 08:31 | XMS_ITS | Continuity of Care Document ---
:1980 Author Organization [facility] Address Unavailable , Care Team Providers Name Role Phone Kaela Isabel Gold DO Primary Care Physician [place] [facility] [place] 09[place]15/21 [facility] Attending Physician: Edita Jauregui MD Referring Physician: Richelle Nathan MD Allergies, Adverse Reactions, Alerts Substance Reaction [...] Most recent to oldest [Reference Range]: 1 Height 160.5 cm (09/08/21 9:00 AM) Weight 96.6 kg (09/08/21 9:00 AM) Pulse Rate [55-90 bpm] 87 bpm (09/08/21 9:00 AM) Body Mass Index [18.5-24.99] 37.5 *>HHI* (09/08/21 9:00 AM) Blood Pressure [90-138/55-84 mm Hg] 100/79 mm Hg (09/08/21 9:00 AM) Blood pressure sites Arm, right (09/08/21 9:00 AM) Weight Obtained Via Standing scale (09/08/21 9:00 AM) Social History Social History Type Response Smoking Status Never smoker entered on: 04/23/14 Sex
--- OUTSIDE RECORDS SUMMARY | 2022-12-21 08:31 | XMS_ITS | Continuity of Care Document ---
:1980 Author Organization [facility] Address Unavailable , Care Team Providers Name Role Phone Richelle Nathan MD Primary Care Physician Encounter [facility] [place] Date(s): 10/25/21 - 11/24/21 [facility] Allergies, Adverse Reactions, Alerts Substance Reaction Severity Status NKA Active Medications cyclobenzaprine 10 mg oral tablet 10 mg, 1, tablet, By Mouth, 3 times a day, PRN, # 15 tablet, Refills 0, Tot. Refills 0, Acute 12/02/21 12:26:00 EST, for spasm, 11/22/21 12:26:00 EST, Route to Pharmacy Electronically, [facility]/pharmacy #[id number], Partial fill upon patient request if the presc... Start Date: 11/22/21 Stop Date: 12/02/21 Status: Ordereddoxycycline hyclate 100 mg oral capsule 1 capsule = 100 mg, By Mouth, 2 times a day, start 2 days prior to procedure, # 10 capsule, 0 Refills, Maintenance, 10/26/21 13:32:00 EST, [facility]/pharmacy #[id number], Partial fill upon patient request [...]
--- OUTSIDE RECORDS SUMMARY | 2022-12-21 08:31 | XMS_ITS | Continuity of Care Document ---
:1980 Author Organization [facility] Address Unavailable , Care Team Providers Name Role Phone Richelle Nathan MD Primary Care Physician Encounter [facility] [place] Date(s): 11/22/21 - 11/29/21 [facility] Attending Physician: Edita Jauregui MD Allergies, Adverse Reactions, Alerts No Known Allergies Medications cyclobenzaprine 10 mg oral tablet 10 mg, 1, tablet, By Mouth, 3 times a day, PRN, # 15 tablet, Refills 0, Tot. Refills 0, Acute 12/02/21 12:26:00 EST, for spasm, 11/22/21 12:26:00 EST, Route to Pharmacy Electronically, [facility]/pharmacy #[id number], Partial fill upon patient request [...] oldest [Reference Range]: 1 Height 160.5 cm (1/10/22 11:20 AM) Social History Social History Type Response Smoking Status Never smoker entered on: 04/23/14 Sex
[2022-12-21] MEDS: 0.9 % Sodium Chloride 1,000 ML 999 ML IV (09:04)
[2022-12-21] MEDS: Famotidine/PF 20 MG/2 ML VIAL IVPUSH (09:04)
[2022-12-21 09:05] LABS: MANUAL DIFF FLAG NO
[2022-12-21] MEDS: Magnesium Hydrox/Alum Hydrox 30 ML ORAL.SUSP PO (09:05)
[2022-12-21 09:08] LABS: Appearance Urine Clear; Color Urine Yellow; Glucose Urine UA Negative (Negative); Leukocyte Esterase Urine Trace (Negative); Nitrite Urine Negative (Negative); Specific Gravity - Urine <= 1.005 (1.005-1.025); UMIC TRIGGER UACC YES; Urine Blood Small (1+) (Negative); Urine Ketones Negative (Negative); Urine Protein Negative (Neg-Trace)
[2022-12-21 09:11] LABS: Basophils Percent Auto 0.7 % (0-2); Eosinophils Absolute Auto 0.1 X10*3/uL (0.0-0.4); Eosinophils Percent Auto 1.1 % (0-4); Hematocrit 41.4 % (37.0-47.0); Hemoglobin 13.5 g/dl (12.0-16.0); Lymphocytes Percent Auto 43.3 % (20-40); Mean Corpuscular HGB Conc 32.6 g/dl (31.0-35.0); Mean Corpuscular Hemoglobin 30.1 pg (27.0-33.0); Mean Corpuscular Volume 92.4 fL (80.0-98.0); Mean Platelet Volume 9.4 fL (9.4-12.3); Monocytes Absolute Auto 0.4 X10*3/uL (0.1-1.2); Neutrophils Absolute Auto 2.1 x10*3/uL (2.0-8.3); Neutrophils Percent Auto 45.9 % (45-73); Platelet Count 306 X10*3/uL (160-400); Red Blood Count 4.48 X10*6/uL (4.20-5.50); Red Cell Distribution Width 12.3 % (11.0-16.0); White Blood Count 4.6 X10*3/uL (4.8-10.8)
[2022-12-21 09:22] LABS: Alanine Aminotransferase 16 U/L (0-31); Albumin Level 4.3 g/dL (3.5-5.0); Alkaline Phosphatase 117 U/L (39-117); Anion Gap 16 (12-20); Aspartate Amino Transferase 23 U/L (5-31); Bilirubin Direct 0.4 mg/dL (0.0-0.5); Bilirubin Total 1.6 mg/dL (0.0-1.0); Blood Urea Nitrogen 9 mg/dL (9-16); Calcium 9.7 mg/dL (8.4-10.2); Carbon Dioxide 25 mmol/L (22-29); Chloride 104 mmol/L (96-108); Creatinine Clr Calc Pharmacy 84.2; Estimated Glomerular Filt Rate > 60; Glucose Random 103 mg/dL (60-115); Lipase 17 U/L (8-78); Magnesium 1.9 mg/dL (1.6-2.6); Potassium 3.8 mmol/L (3.3-5.1); Sodium 141 mmol/L (135-145); Total Protein 7.6 g/dL (6.5-8.0)
[2022-12-21 09:27] LABS: Bacteria Urine None Seen (None Seen); Hyaline Casts Urine 0-2 /LPF (0-2); RBC Urine 0-2 /HPF (0-2); WBC Urine 0-5 /HPF (0-5)
[2022-12-21 09:29] LABS: Troponin-I High Sensitivity < 3.5 ng/L (<3.5-17.0)
[2022-12-21] MEDS: ondansetron HCL 4 MG/2 ML VIAL IVPUSH (09:46)
[2022-12-21 10:03] LABS: UPreg QC Valid YES; Urine Pregnancy NEGATIVE (NEGATIVE)
[2022-12-21] MEDS: iohexoL 350 MG/ML 100 ML INFUS..BTL IV (10:10)
[2022-12-21 12:17] VITALS: BP 104/76; PULSE 71; RESP 11; TEMP 36.7; O2SAT 100
== END 2022-12-21 12:32 | disposition home or self-care (01) ==
PROVIDERS: Physician Assistant; Emergency Provider Emergency Medicine
DX: K52.9 Noninfective gastroenteritis and colitis, unspecified (principal); R11.2 Nausea with vomiting, unspecified; Z98.84 Bariatric surgery status; Z90.49 Acquired absence of other specified parts of digestive tract
CPT/HCPCS: 36415; 71045; 74177; 80048; 80076; 81001; 81025; 83690; 83735; 84484; 85025; 93005; 96361; 96374; 96375; 99284; 99285; J2405; Q9967

== ENCOUNTER 2023-01-25 11:31 | Emergency (ER) | payer OTHER, SELFPAY ==
--- NOTE | ~2023-01-25 | XR_ITS ---
EXAMINATION: LUMBAR SPINE, SACRUM AND COCCYX CLINICAL INFORMATION: Fell downstairs COMPARISON: CT abdomen pelvis 12/21/2022 and 02/18/2022, lumbar spine with sacrum and coccyx 12/12/2013 TECHNIQUE: 3 views lumbar spine, 3 views sacrum and coccyx FINDINGS: Lumbar spine: Severe degenerative changes are present at L3-L4 with marked sclerosis. Grade 1 anterolisthesis of L3 upon L4 which appears increased when compared to the 12/21/2022 study. Bilateral pars defects at L3 were better seen on the CT scan. No acute fractures are seen in the lumbar spine. Again seen is sclerotic change in the right iliac bone adjacent to the SI joint. Sacrum and coccyx: Spina bifida occulta is seen in the lower sacrum. No sacral fracture or bony destructive lesion is seen. The coccyx is deviated to the left similar to appearances on the 12/21/2022 CT scan as well as a 12/12/2013 plain films. XR/XR sacrum coccyx min 2V IMPRESSION: 1. No evidence of an acute injury. 2. Severe generalized changes in the lumbar spine with grade 1 anterolisthesis of L3 upon L4 and associated L3 pars defects. 3. No sacral or coccygeal fracture is seen. The coccyx appears deviated to the left as it has been since at least 2013.
--- NOTE | ~2023-01-25 | XR_ITS ---
EXAMINATION: LUMBAR SPINE, SACRUM AND COCCYX CLINICAL INFORMATION: Fell downstairs COMPARISON: CT abdomen pelvis 12/21/2022 and 02/18/2022, lumbar spine with sacrum and coccyx 12/12/2013 TECHNIQUE: 3 views lumbar spine, 3 views sacrum and coccyx FINDINGS: Lumbar spine: Severe degenerative changes are present at L3-L4 with marked sclerosis. Grade 1 anterolisthesis of L3 upon L4 which appears increased when compared to the 12/21/2022 study. Bilateral pars defects at L3 were better seen on the CT scan. No acute fractures are seen in the lumbar spine. Again seen is sclerotic change in the right iliac bone adjacent to the SI joint. Sacrum and coccyx: Spina bifida occulta is seen in the lower sacrum. No sacral fracture or bony destructive lesion is seen. The coccyx is deviated to the left similar to appearances on the 12/21/2022 CT scan as well as a 12/12/2013 plain films. XR/XR lumbar spine 2-3V IMPRESSION: 1. No evidence of an acute injury. 2. Severe generalized changes in the lumbar spine with grade 1 anterolisthesis of L3 upon L4 and associated L3 pars defects. 3. No sacral or coccygeal fracture is seen. The coccyx appears deviated to the left as it has been since at least 2013.
--- NOTE | 2023-01-25 11:34 | ED.FALL ---
HPI - Fall General Chief Complaint: Back Pain/Injury <PHILIP Carballo Last Filed: 01/25/23 11:37> Stated Complaint: Fall/Sacrum pain <PHILIP Carballo Last Filed: 01/25/23 11:37> Time Seen by Provider: 01/25/23 11:53 <PHILIP Carballo Last Filed: 01/25/23 11:37> History of Present Illness HPI Narrative: Patient complains of low back and coccyx pain after slipping on stairs and sliding down on her coccyx and back 3 days ago, she denies any other injury except to the low back, there is no numbness no weakness no tingling no radiation of pain no changes to bowel or bladder no IV drug use no fever She did not hit her head there is no headache no loss of consciousness no dizziness no confusion, she did not feel faint or dizzy before it was a simple slip and fall she has no neck pain no shortness of breath no abdominal pain no chest pain <PHILIP Khan Last Filed: 01/27/23 11:46> Related Data Home Medications: Previous Rx's Medication Instructions Recorded ondansetron HCl 4 mg tablet 4 mg PO Q8H PRN nausea and 06/03/21 (Zofran) vomiting #10 tabs cyclobenzaprine 10 mg tablet 10 mg PO BEDTIME #14 tabs 08/18/21 meloxicam 15 mg tablet 15 mg PO DAILY #14 tabs 08/18/21 cyclobenzaprine 10 mg tablet 10 mg PO TID PRN muscle spasm #14 02/18/22 tabs lidocaine 5 % topical patch 1 patch topical DAILY #15 ea 02/18/22 (Lidoderm) naproxen 500 mg tablet 500 mg PO BID PRN pain #20 tabs 02/18/22 ondansetron 4 mg disintegrating 4 mg PO Q8H PRN nausea and 12/21/22 tablet vomiting #10 tabs ibuprofen 600 mg tablet 600 mg PO Q6H PRN pain #20 tabs 01/25/23 <PHILIP Carballo Last Filed: 01/25/23 11:37> Allergies/Adverse Reactions: Allergies Allergy/AdvReac Type Severity Reaction Status Date / Time No Known Allergies Allergy Verified 01/25/23 11:34 <PHILIP Carballo Last Filed: 01/25/23 11:37> FOR[facility]LY [facility] Past Medical History Source: nursing notes reviewed <PHILIP Khan - Last Filed: 01/27/23 11:46> Medical History: Medical History Bipolar 1 disorder Lumbar herniated disc Migraine No known health problems <PHILIP Carballo - Last Filed: 01/25/23 11:37> Surgical History: Surgical History H/O gastric sleeve Hx of cholecystectomy <PHILIP Carballo - Last Filed: 01/25/23 11:37> Social History Social History: Social History Alcohol intake: unknown Patient Tobacco Use Status: Never used Tobacco Advance Directives: No Advance Directives Information Provided: No <PHILIP Carballo - Last Filed: 01/25/23 11:37> Physical Exam Vital Signs: Vital Signs: Last Vital Signs Temp 98.2 F 01/25/23 11:35 Pulse 98 01/25/23 11:35 Resp 16 01/25/23 11:35 BP 156/79 H 01/25/23 11:35 Pulse Ox 100 01/25/23 11:35 O2 Del Method 01/25/23 11:35 BMI result Body Mass Index 38.0 <PHILIP Carballo - Last Filed: 01/25/23 11:37> Vital Signs: Last Vital Signs Temp 98.2 F 01/25/23 11:35 Pulse 98 01/25/23 11:35 Resp 16 01/25/23 11:35 BP 156/79 H 01/25/23 11:35 Pulse Ox 100 01/25/23 11:35 O2 Del Method 01/25/23 11:35 BMI result Body Mass Index 38.0 <PHILIP Khan - Last Filed: 01/27/23 11:46> General appearance no distress Head is normocephalic atraumatic Neck is supple Chest is clear to auscultation bilateral no chest wall tenderness Abdomen soft nontender Extremities full range of motion x4 The back had bilateral lower lumbar tenderness, no focal bony tenderness, there was also some coccyx tenderness Neuro gait and balance are normal, motor is 5/5 x4, sensation intact and symmetrical in extremities <PHILIP Khan Last Filed: 01/27/23 11:46> Course Course Course Narrative: RME--42yo F c/o low back/buttock pain x2 days s/p slip and fall down stairs on Monday. Denies head trauma or LOC, denies incontinence or retention No midline spinous ttp. +sacrum tenderness. No ecchymosis XR ordered <PHILIP Carballo Last Filed: 01/25/23 11:37> RME--42yo F c/o low back/buttock pain x2 days s/p slip and fall down stairs on Monday. Denies head trauma or LOC, denies incontinence or retention No midline spinous ttp. +sacrum tenderness. No ecchymosis XR ordered Lumbar spine and coccyx x-ray was negative and well-appearing patient ambulating easily without neurologic deficit no changes to bowel or bladder is discharged <PHILIP Khan Last Filed: 01/27/23 11:46> Discharge Plan Discharge Clinical Impression: Back strain <PHILIP Carballo Last Filed: 01/25/23 11:37> Patient Disposition: Home, Self-Care <PHILIP Carballo Last Filed: 01/25/23 11:37> Additional Instructions: X-rays of her back did not show any broken bones so likely have strained and bruised muscles in the back Follow with primary doctor as needed Tylenol and or Motrin as needed, activity as tolerated Return any time any worse condition or any concerns <PHILIP Carballo Last Filed: 01/25/23 11:37> Prescriptions: New ibuprofen 600 mg tablet 600 mg PO Q6H PRN (Reason: pain) Qty: 20 0RF No Action meloxicam 15 mg tablet 15 mg PO DAILY Qty: 14 0RF cyclobenzaprine 10 mg tablet 10 mg PO BEDTIME Qty: 14 0RF ondansetron HCl [Zofran] 4 mg tablet 4 mg PO Q8H PRN (Reason: nausea and vomiting) Qty: 10 0RF naproxen 500 mg tablet 500 mg PO BID PRN (Reason: pain) Qty: 20 0RF cyclobenzaprine 10 mg tablet 10 mg PO TID PRN (Reason: muscle spasm) Qty: 14 0RF lidocaine [Lidoderm] 5 % adhesive patch,medicated 1 patch topical DAILY Qty: 15 0RF Rx Instructions: leave on most painful area for up to 12 hrs ondansetron 4 mg tablet,disintegrating 4 mg PO Q8H PRN (Reason: nausea and vomiting) Qty: 10 0RF <PHILIP Carballo - Last Filed: 01/25/23 11:37> Stand Alone Forms: Work/School Release <PHILIP Carballo - Last Filed: 01/25/23 11:37> Interventions: ED Discharge Assessment Last Done: 01/25/23 14:05 <PHILIP Carballo - Last Filed: 01/25/23 11:37> Discharge Date/Time: 01/25/23 14:06 <PHILIP Carballo - Last Filed: 01/25/23 11:37>
[2023-01-25 11:35] VITALS: BP 156/79; PULSE 98; RESP 16; TEMP 36.8; O2SAT 100; BMI 38.0
== END 2023-01-25 14:06 | disposition home or self-care (01) ==
PROVIDERS: Emergency Provider Emergency Medicine
DX: S39.012A Strain of muscle, fascia and tendon of lower back, initial encounter (principal); M53.3 Sacrococcygeal disorders, not elsewhere classified; W10.9XXA Fall (on) (from) unspecified stairs and steps, initial encounter; Y93.9 Activity, unspecified; Y92.9 Unspecified place or not applicable; Y99.9 Unspecified external cause status; Z79.899 Other long term (current) drug therapy
CPT/HCPCS: 72100; 72220; 99282; 99283

== ENCOUNTER 2023-12-16 15:16 | Emergency (ER) | payer OTHER, SELFPAY ==
--- NOTE | ~2023-12-16 | CT_ITS ---
EXAMINATION: CT ABDOMEN AND PELVIS WITH CONTRAST CLINICAL INFORMATION: pain, recent surgery, nausea, vomiting COMPARISON: 12/21/2022 TECHNIQUE: Multidetector volumetric imaging was performed from the superior aspect of the liver through the pubic symphysis following administration of 85 mL Omnipaque 300 intravenous contrast. Sagittal and coronal reformatted images were obtained on the technologist workstation.. This CT examination was performed using dose optimization techniques as appropriate, variously including the following: *Automated exposure control *Adjustment of mA and/or kV according to patient size (this includes techniques or standardized protocols for targeted exams where dose is matched to indication/reason for exam; i.e. extremities or head) *Use of iterative reconstruction technique DLP: 814 mGy-cm FINDINGS: LUNG BASES: Basilar dependent atelectasis LIVER, GALLBLADDER, AND BILIARY TREE: The liver is normal in size, shape, and attenuation. No focal hepatic lesion or biliary ductal dilatation is present. Gallbladder surgically absent. PANCREAS: Unremarkable. SPLEEN: Unremarkable. ADRENAL GLANDS: Unremarkable. KIDNEYS AND URETERS: The kidneys are normal in size, shape, and attenuation. No hydronephrosis, hydroureter, or perinephric stranding. No calculi. BLADDER: Unremarkable. GASTROINTESTINAL TRACT: Mild diffuse rectal and distal colonic wall thickening more than would be expected for the degree of decompression alone. Mild infectious or inflammatory colitis cannot be excluded with this appearance. Normal-appearing appendix in the right lower quadrant. Visualized small bowel unremarkable. Postoperative changes in the stomach likely from gastric sleeve surgery ABDOMINAL WALL: No significant hernia is appreciated. LYMPHOVASCULAR STRUCTURES: No lymphadenopathy. The aorta is unremarkable. PELVIC VISCERA: Heterogeneity to the uterus suggesting underlying fibroids. OSSEOUS STRUCTURES: Degenerative changes more so at L3/L4 with chronic pars defects at L3. CT/CT abdomen pelvis w IV con IMPRESSION: Mild diffuse rectal and distal colonic wall thickening more than would be expected for the degree of decompression alone. Mild infectious or inflammatory colitis cannot be excluded with this appearance. Chronic appearing and postoperative changes otherwise as described.
--- NOTE | ~2023-12-16 | XR_ITS ---
EXAMINATION: XR CHEST CLINICAL INFORMATION: Chest pain COMPARISON: Previous chest x-ray December 2022 TECHNIQUE: 2 views of the chest were obtained. FINDINGS: No significant abnormality is noted involving the heart, lungs, mediastinum, bony thorax or soft tissues. XR/XR chest 2V IMPRESSION: Unremarkable examination.
--- NOTE | 2023-12-16 15:17 | ECG_ITS ---
Test Reason : chest pain Blood Pressure : / mmHG Vent. Rate : 116 BPM Atrial Rate : 116 BPM P-R Int : 122 ms QRS Dur : 066 ms QT Int : 328 ms P-R-T Axes : 060 011 013 degrees QTc Int : 455 ms Sinus tachycardia with occasional Premature ventricular complexes Otherwise normal ECG When compared with ECG of 21-DEC-2022 08:47, Premature ventricular complexes are now Present Vent. rate has increased BY 50 BPM Referred By: Julieta Cohen Electronically Signed By:FRANSISCO MICHAELS MD
[2023-12-16 15:36] VITALS: BP 142/88; PULSE 118; RESP 18; TEMP 36.6; O2SAT 98; BMI 39.6
--- NOTE | 2023-12-16 15:40 | ED_ITS ---
HPI - General Adult General Chief complaint: Chest Pain Stated complaint: chest pain Time Seen by Provider: 12/16/23 16:08 Source: patient Mode of arrival: ambulatory Limitations: no limitations History of Present Illness HPI narrative: Patient is a 43 year old assigned female at with a history of recent abdominal surgery on 12/01/2023 presenting to the emergency department today with chest pain, left sided back pain, nausea, and vomiting. Patient states that she woke up with this chest pain and left sided low back pain. Patient states that she on Zofran at home for this nausea and vomiting post abdominal surgery. Patient states that her surgery was done at [facility]. Patient denies any dizziness, lightheadedness, abdominal pain, fever, chills, blurry vision, double vision, loss of vision, difficulty breathing, shortness of breath, night sweats, pain with urination, increased urinary frequency, increased urinary urgency, blood in her urine or stool, syncope or a near syncopal episode, recent trauma or falls, bowel incontinence, bladder incontinence, bowel retention, bladder retention, or any other complaints at this time. Onset (ago): hour(s) Location: chest Severity: mild Severity scale (1-10): 3 Relieving factors: none Exacerbating factors: none Associated symptoms: chest pain and nausea/vomiting Treatments prior to arrival: none Related Data Previous Rx's Medication Instructions Recorded ondansetron HCl 4 mg tablet 4 mg PO Q8H PRN nausea and 06/03/21 (Zofran) vomiting #10 tabs cyclobenzaprine 10 mg tablet 10 mg PO BEDTIME #14 tabs 08/18/21 meloxicam 15 mg tablet 15 mg PO DAILY #14 tabs 08/18/21 cyclobenzaprine 10 mg tablet 10 mg PO TID PRN muscle spasm #14 02/18/22 tabs lidocaine 5 % topical patch 1 patch topical DAILY #15 ea 02/18/22 (Lidoderm) naproxen 500 mg tablet 500 mg PO BID PRN pain #20 tabs 02/18/22 ondansetron 4 mg disintegrating 4 mg PO Q8H PRN nausea and 12/21/22 tablet vomiting #10 tabs ibuprofen 600 mg tablet 600 mg PO Q6H PRN pain #20 tabs 01/25/23 Allergies Allergy/AdvReac Type Severity Reaction Status Date / Time No Known Allergies Allergy Verified 12/16/23 15:43 Review of Systems 2 Constitutional: Constitutional: Reports no additional constitutional complaints, Denies chills, Denies fever(s) and Denies night sweats Eyes: Eyes: Reports no additional eye complaints, Denies blurry vision, Denies change in vision, Denies diplopia, Denies eye discharge, Denies loss of vision and Denies eye pain ENT: Denies dizziness Cardiovascular: Cardiovascular: Reports no additional cardiovascular complaints, Reports chest pain, Denies lightheadedness, Denies Loss of Consciousness and Denies dyspnea Respiratory: Respiratory: Reports no additional respiratory complaints and Denies dyspnea Gastrointestinal: Gastrointestinal: Reports no additional gastrointestinal complaints, Denies abdominal pain, Denies melena, Denies hematochezia, Denies change in bowel habits, Denies change in stool character, Reports nausea and Reports vomiting Genitourinary: Genitourinary: Denies hematuria, Denies urinary frequency, Denies dysuria, Denies urinary incontinence, Denies urinary hesitancy and Denies urinary urgency Musculoskeletal: Musculoskeletal: Reports no additional musculoskeletal complaints, Reports back pain, Denies numbness and Denies tingling Neurologic: Denies dizziness, Denies loss of vision, Denies numbness and Denies tingling Psychiatric: Psychiatric: Reports no additional psychiatric complaints Endocrine: Endocrine: Reports no additional endocrine complaints Hematologic/Lymphatic: Hematologic/Lymphatic: Reports no additional hematologic/lymphatic complaints Allergic/Immunologic: Allergic/Immunologic: Reports no additional allergic/immunologic complaints [facility] Past Medical History Attestation statement: The following information was validated with the patient. Source: old records reviewed and nursing notes reviewed Medical History Bipolar 1 disorder Lumbar herniated disc Migraine No known health problems Surgical History Hx of cholecystectomy H/O gastric sleeve Social History Social History Alcohol intake: unknown Patient Tobacco Use Status: Never used Tobacco Smoked in Last 30 Days: No Use of substances other than those prescribed or required for medical reasons: No Advance Directives: No Advance Directives Information Provided: No Patient : No Physical Exam ED Vital Signs: Vital Signs - 24 hr 12/16/23 15:36 12/16/23 16:15 12/16/23 18:40 Temperature 97.9 F 98.1 F 97.3 F Pulse Rate 118 H 96 81 Respiratory Rate 18 14 20 Blood Pressure 142/88 H 126/86 107/59 L Pulse Oximetry 98 99 99 Oxygen Delivery Method Room Air Room Air Room Air BMI result Body Mass Index 39.6 Const General: cooperative, no acute distress, alert and awake Nutritional Appearance: well nourished Orientation/consciousness: patient oriented x3 Limitations: no limitations HENMT Head: Yes normal to inspection and Yes atraumatic Ears: hearing grossly normal bilaterally and external ears normal General nose exam: Normal external nose present, no nasal discharge noted and no epistaxis Face and sinus: Yes normal facial exam, No abrasion and No laceration Mouth: Normal oral and palatal mucosa present, no drooling and no muffled voice Eyes General: appearance normal, both eyes and all related structures Periorbital: periorbital findings normal Eyelids: Yes eyelids normal Conjunctivae: conjunctivae normal Pupils: Equal, round and reactive pupils present EOM: EOMs intact bilaterally Neck Neck: Yes normal visual inspection, Yes full ROM and Yes no lymphadenopathy Chest Other: pain with palpation of the upper left chest wall Chest palpation & inspection: normal inspection of the chest Resp Effort & Inspection: normal respiratory effort and able to speak in complete sentences GI Inspection: Yes normal to inspection Palpation (GI): Soft to palpation, not firm, nontender and no guarding Neuro General: patient oriented x3 and moves all extremities Cranial nerves: Yes Equal, round and reactive pupils present Cognition (Neuro): normal cognition Motor exam (neuro): 5/5 motor strength present throughout Sensory Exam: Normal double simultaneous stimulation for sensation Coordination: [id number] test normal Extrem General: Yes normal to inspection, Yes full ROM and Yes capillary refill normal Psych Appearance: grossly normal Mental Status: mental status grossly normal Affect: normal affect Attitude: cooperative Thought process: Normal thought process present Thought content: Normal thought content present Insight: Good insight present (Psych) Course Course Course Narrative: This is a rapid medical exam: Additional HPI, ROS, PE not included below will be deferred to primary provider. Patient is a 43-year-old female presenting to the emergency department with complaint of chest pain which began around 30 minutes ago, woke her from sleep. Also complains of left mid-back pain which began at the same time. Denies any shortness of breath, nausea, dizziness. Plan: EKG, labs, CXR, UA Medications Administered Discontinued Medications Generic Name Dose Route Start Last Admin Trade Name [place] PRN Reason Stop Dose Admin Diatrizoate Meglum/Diatrizoate Sod 30 ml 12/16/23 18:02 12/16/23 18:02 Diatrizoate Meglumine, Sodium 30 Ml Solution PO 12/16/23 18:03 30 ml ONCE ONE Administration Sodium Chloride 1,000 mls @ 999 mls/hr 12/16/23 16:30 12/16/23 20:04 Ns IV 12/16/23 17:30 Infused .Q1H1M JUDI Infusion Iohexol 100 ml 12/16/23 18:02 12/16/23 18:02 Iohexol 350 Mg/Ml 100 Ml Infus..Btl IV 12/16/23 18:03 85 ml ONCE ONE Administration Morphine Sulfate 4 mg 12/16/23 16:18 12/16/23 16:52 Morphine Sulfate 4 Mg/Ml Cartridge IVPUSH 12/16/23 16:19 4 mg ONCE ONE Administration Protocol Ondansetron HCl 4 mg 12/16/23 16:18 12/16/23 16:52 Ondansetron Hcl 4 Mg/2 Ml Vial IVPUSH 12/16/23 16:19 4 mg ONCE ONE Administration Medical Decision Making Medical Decision Making [facility] Narrative: Patient is a 43 year old assigned female at with a history of recent abdominal surgery presenting to the emergency department today with chest pain, left sided back pain, nausea, and vomiting. Patient's physical exam was as noted in the physical exam portion of this note. Patient's blood work was unremarkable. Patient's urine showed no acute process. Patient's EKG was unremarkable. Patient's chest x-ray showed no acute process. Patient's CT abdomen / pelvis showed evidence of colitis. I explained my physical exam findings as well as all test results to the patient. I answered all questions asked by the patient. I stressed the importance of the patient taking her medication as prescribed. I stressed the importance of the patient following up with her primary care provider. I stressed the importance of the patient returning to the emergency department immediately if her symptoms were to worsen or if she were to develop any dizziness, shortness of breath, difficulty breathing, chest pain, blurry vision, loss of vision, nausea, vomiting, abdominal pain, fever, chills, back pain, or any other complaints. Patient verbalized agreement and understanding with this treatment plan and discharge. Differential Diagnosis Differential Diagnoses: The differential diagnosis associated with the presentation includes Chest wall pain STEMI NSTEMI Colitis Admission/Observation Consideration of admission/observation: Escalation of care including admission/observation considered Patient would have been admitted to the hospital had her work up had any findings where hospital admission was appropriate and her clinical presentation warranted hospital admission. Lab Data [facility] Lab Attestation statement: I reviewed the patient's lab results. My interpretation of these results are in the [facility] Rationale portion of this note. 12/16/23 15:52 12/16/23 15:52 Labs: Lab Results 12/16/23 12/16/23 Range/Units 15:52 19:39 WBC 5.6 (4.8-10.8) X10*3/uL RBC 4.99 (4.20-5.50) X10*6/uL Hgb 14.7 (12.0-16.0) g/dl Hct 45.0 (37.0-47.0) % MCV 90.2 (80.0-98.0) fL MCH 29.5 (27.0-33.0) pg MCHC 32.7 (31.0-35.0) g/dl RDW 12.0 (11.0-16.0) % Plt Count 351 (160-400) X10*3/uL MPV 9.4 (9.4-12.3) fL Immature Gran % (Auto) 0.2 (0.0-0.4) % Neut % (Auto) 42.6 L (45-73) % Lymph % (Auto) 49.0 H (20-40) % Aiken % (Auto) 5.9 (2-11) % Eos % (Auto) 1.6 (0-4) % Baso % (Auto) 0.7 (0-2) % Lymph # (Auto) 2.7 (1.2-4.9) X10*3/uL Aiken # (Auto) 0.3 (0.1-1.2) X10*3/uL Eos # (Auto) 0.1 (0.0-0.4) X10*3/uL Baso # (Auto) 0.0 (0.0-0.2) X10*3/uL Abs Immat Gran (auto) 0.01 (0.00-0.03) X10*3/uL Absolute Neuts (auto) 2.4 (2.0-8.3) x10*3/uL Absolute Nucleated RBC 0.000 (0.0-0.012) X10*3/uL Nucleated RBC % (auto) 0.0 (0.0-0.2) /100WBC PT 13.3 (11.1-13.3) SEC INR 1.1 (0.9-1.1) Sodium 140 (135-145) mmol/L Potassium 3.7 (3.3-5.1) mmol/L Chloride 107 (96-108) mmol/L Carbon Dioxide 20 L (22-29) mmol/L Anion Gap 17 (12-20) BUN 11 (9-16) mg/dL Creatinine 0.89 (0.5-1.4) mg/dL Estim Creat Clear Calc 92.6 Estimated GFR > 60 Random Glucose 87 (60-115) mg/dL Calcium 9.6 (8.4-10.2) mg/dL Total Bilirubin 0.9 (0.0-1.0) mg/dL AST 31 (5-31) U/L ALT 37 H (0-31) U/L Alkaline Phosphatase 99 (39-117) U/L Troponin I High Sens < 2.7 (<3.5-17.0) ng/L Total Protein 7.6 (6.5-8.0) g/dL Albumin 4.2 (3.5-5.0) g/dL Beta HCG, Quant < 2 mIU/mL Urine Color Yellow Urine Appearance Clear Urine pH 5.5 (5.0-9.0) Ur Specific [place] >= 1.030 H (1.005-1.025) Urine Protein Negative (Neg-Trace) mg/dL Urine Glucose (UA) Negative (Negative) mg/dL Urine Ketones 40 (Negative) mg/dL Urine Blood Large (3+) H (Negative) Urine Nitrite Negative (Negative) Ur Leukocyte Esterase Negative (Negative) Urine RBC 11-20 H (0-2) /HPF Urine WBC 0-5 (0-5) /HPF Ur Squamous Epith Cells 6-10 (0-2) /HPF Urine Bacteria 1+ (None Seen) Hyaline Casts 0-2 (0-2) /LPF COVID-19 (JUANCARLOS) Negative (Negative) COVID-19 Clin Com See Note Influenza Type A (YURI) Negative (Negative) Influenza Type B (YURI) Negative (Negative) Influenza A & B Note See Note Independent Interpretation I performed an independent interpretation of an: EKG, Plain X-Ray and CT Scan Interpretation: My interpretation is in agreement with the radiologist's impression of these imaging studies. - EXAMINATION: XR CHEST CLINICAL INFORMATION: Chest pain COMPARISON: Previous chest x-ray December 2022 TECHNIQUE: 2 views of the chest were obtained. FINDINGS: No significant abnormality is noted involving the heart, lungs, mediastinum, bony thorax or soft tissues. XR/XR chest 2V IMPRESSION: Unremarkable examination. Dictated By: Michelle Ibrahim MD Signed By: Electronically signed by Michelle Ibrahim MD 12/16/23 1634 - EXAMINATION: CT ABDOMEN AND PELVIS WITH CONTRAST CLINICAL INFORMATION: pain, recent surgery, nausea, vomiting COMPARISON: 12/21/2022 TECHNIQUE: Multidetector volumetric imaging was performed from the superior aspect of the liver through the pubic symphysis following administration of 85 mL Omnipaque 300 intravenous contrast. Sagittal and coronal reformatted images were obtained on the technologist workstation.. This CT examination was performed using dose optimization techniques as appropriate, variously including the following: *Automated exposure control *Adjustment of mA and/or kV according to patient size (this includes techniques or standardized protocols for targeted exams where dose is matched to indication/reason for exam; i.e. extremities or head) *Use of iterative reconstruction technique DLP: 814 mGy-cm FINDINGS: LUNG BASES: Basilar dependent atelectasis LIVER, GALLBLADDER, AND BILIARY TREE: The liver is normal in size, shape, and attenuation. No focal hepatic lesion or biliary ductal dilatation is present. Gallbladder surgically absent. PANCREAS: Unremarkable. SPLEEN: Unremarkable. ADRENAL GLANDS: Unremarkable. KIDNEYS AND URETERS: The kidneys are normal in size, shape, and attenuation. No hydronephrosis, hydroureter, or perinephric stranding. No calculi. BLADDER: Unremarkable. GASTROINTESTINAL TRACT: Mild diffuse rectal and distal colonic wall thickening more than would be expected for the degree of decompression alone. Mild infectious or inflammatory colitis cannot be excluded with this appearance. Normal-appearing appendix in the right lower quadrant. Visualized small bowel unremarkable. Postoperative changes in the stomach likely from gastric sleeve surgery ABDOMINAL WALL: No significant hernia is appreciated. LYMPHOVASCULAR STRUCTURES: No lymphadenopathy. The aorta is unremarkable. PELVIC VISCERA: Heterogeneity to the uterus suggesting underlying fibroids. OSSEOUS STRUCTURES: Degenerative changes more so at L3/L4 with chronic pars defects at L3. CT/CT abdomen pelvis w IV con IMPRESSION: Mild diffuse rectal and distal colonic wall thickening more than would be expected for the degree of decompression alone. Mild infectious or inflammatory colitis cannot be excluded with this appearance. Chronic appearing and postoperative changes otherwise as described. Dictated By: Corey Jeong MD Signed By: Electronically signed by Corey Jeong MD 12/16/23 1836 - Vent. Rate: 112 BPM Atrial Rate: 122 BPM P-R Int: 126 ms QRS Dur: 066 ms QT Int: 324 ms P-R-T Axes: 064 022 -7 degrees QTc Int: 442 ms Normal sinus rhythm with sinus arrhythmia Normal ECG 12/16/23 1528 Radiology Impression Discussion of test interpretation with radiology: I have reviewed the radiologist's reading. Critical Care Time Critical Care Time Critical Care Time: Yes Total Critical Care Time: 45 Attestation: I spent 45 minutes of Critical Care Time with this patient. This does not include time spent on separately reported billable procedures. Discharge Plan Discharge Clinical Impression: Atypical chest pain, Colitis Patient Disposition: Home, Self-Care Instructions: Colitis (ED), Chest Wall Pain (ED) Additional Instructions: Your CT scan shows evidence of colitis (inflammation of the bowel). Continue using your Zofran at home as needed for nausea / vomiting. Follow up with your primary care provider. Return to the emergency department immediately if your symptoms worsen or if you develop any dizziness, shortness of breath, difficulty breathing, chest pain, blurry vision, loss of vision, nausea, vomiting, abdominal pain, fever, chills, back pain, or any other complaints. Prescriptions: No Action meloxicam 15 mg tablet 15 mg PO DAILY Qty: 14 0RF cyclobenzaprine 10 mg tablet 10 mg PO BEDTIME Qty: 14 0RF ondansetron HCl [Zofran] 4 mg tablet 4 mg PO Q8H PRN (Reason: nausea and vomiting) Qty: 10 0RF naproxen 500 mg tablet 500 mg PO BID PRN (Reason: pain) Qty: 20 0RF cyclobenzaprine 10 mg tablet 10 mg PO TID PRN (Reason: muscle spasm) Qty: 14 0RF lidocaine [Lidoderm] 5 % adhesive patch,medicated 1 patch topical DAILY Qty: 15 0RF Rx Instructions: leave on most painful area for up to 12 hrs ondansetron 4 mg tablet,disintegrating 4 mg PO Q8H PRN (Reason: nausea and vomiting) Qty: 10 0RF ibuprofen 600 mg tablet 600 mg PO Q6H PRN (Reason: pain) Qty: 20 0RF Referrals: [facility] Family Medicine [Provider Group] (Call to establish and follow up with a primary care provider. If you already have a primary care provider, please follow up with them.) [facility] Primary Care, [place] [Provider Group] (Call to establish and follow up with a primary care provider. If you already have a primary care provider, please follow up with them.) [facility] [Provider Group] (Call to establish and follow up with a primary care provider. If you already have a primary care provider, please follow up with them.) Interventions: ED Discharge Assessment Last Done: 12/16/23 20:03 Discharge Date/Time: 12/16/23 20:04 Print Language: Czech
[2023-12-16 15:57] LABS: MANUAL DIFF FLAG NO
[2023-12-16 16:00] LABS: Basophils Percent Auto 0.7 % (0-2); Eosinophils Absolute Auto 0.1 X10*3/uL (0.0-0.4); Eosinophils Percent Auto 1.6 % (0-4); Hemoglobin 14.7 g/dl (12.0-16.0); Imm Gran Abs Auto 0.01 X10*3/uL (0.00-0.03); Imm Gran Pct Auto 0.2 % (0.0-0.4); Lymphocytes Absolute Auto 2.7 X10*3/uL (1.2-4.9); Mean Corpuscular HGB Conc 32.7 g/dl (31.0-35.0); Mean Corpuscular Hemoglobin 29.5 pg (27.0-33.0); Mean Corpuscular Volume 90.2 fL (80.0-98.0); Mean Platelet Volume 9.4 fL (9.4-12.3); Monocytes Absolute Auto 0.3 X10*3/uL (0.1-1.2); Monocytes Percent Auto 5.9 % (2-11); Neutrophils Absolute Auto 2.4 x10*3/uL (2.0-8.3); Neutrophils Percent Auto 42.6 % (45-73); Platelet Count 351 X10*3/uL (160-400); Red Blood Count 4.99 X10*6/uL (4.20-5.50); White Blood Count 5.6 X10*3/uL (4.8-10.8)
[2023-12-16 16:05] LABS: INTERNATIONAL NORM RATIO 1.1 (0.9-1.1); Prothrombin Time 13.3 SEC (11.1-13.3)
[2023-12-16 16:15] VITALS: BP 126/86; PULSE 96; RESP 14; TEMP 36.7; O2SAT 99
[2023-12-16 16:19] LABS: Alanine Aminotransferase 37 U/L (0-31); Albumin Level 4.2 g/dL (3.5-5.0); Alkaline Phosphatase 99 U/L (39-117); Anion Gap 17 (12-20); Aspartate Amino Transferase 31 U/L (5-31); Bilirubin Total 0.9 mg/dL (0.0-1.0); Blood Urea Nitrogen 11 mg/dL (9-16); Calcium 9.6 mg/dL (8.4-10.2); Carbon Dioxide 20 mmol/L (22-29); Chloride 107 mmol/L (96-108); Creatinine Clr Calc Pharmacy 92.6; Estimated Glomerular Filt Rate > 60; Glucose Random 87 mg/dL (60-115); Potassium 3.7 mmol/L (3.3-5.1); Sodium 140 mmol/L (135-145); Total Protein 7.6 g/dL (6.5-8.0)
[2023-12-16 16:22] LABS: HCG Quantitative < 2 mIU/mL; Troponin-I High Sensitivity < 2.7 ng/L (<3.5-17.0)
[2023-12-16 16:23] LABS: COVID-19 Test Negative (Negative); IDNOW Serial# 08D9AD1C; IDNOW Serial# 152EDE1D; Influenza A Negative (Negative); Influenza B2 Negative (Negative)
--- OUTSIDE RECORDS SUMMARY | 2023-12-16 16:39 | XMS_ITS | Continuity of Care Document ---
Author Name Unknown Organization [facility] e Medicine Address [address] [place] [address]- Care Team Providers Care Sales Advisor Name Role Phone Kaela Alla [place] [facility] Nikkie moody [id number] Date(s[facility] 02/21/23 - 03/23/23 [facility] Reproductive Medicine [address] [place] [address]- Allergies, Adverse Reactions, Alerts No Known Allergies Medications Clomid 50 mg oral tablet 2 tablet = 100 mg, By Mouth, Daily, 2 tab by mouth daily for 5 days beginning on the 5TH day of menstrual cycle, # 10 tablet, 0 Refills, Maintenance, 03/23/23 15:59:00 EDT, [facility], [id number], Partial fill upon patient request if the pres... Start Date: 03/23/23 Stop Date: 03/28/23 Status: Ordered doxycycline hyclate 100 mg oral capsule 1 capsule = 100 mg, By Mouth, 2 times a day, start 2 days prior to procedure, # 10 capsule, 0 Refills, Maintenance, 10/26/21 13:32:00 EST, [facility]/pharmacy #[id number], Partial fill upon patient request if theprescription is for a schedule II opioid drug., 160... Start Date: 10/26/21 Stop Date: 10/31/21 Status: Ordered Omeprazole By Mouth, Daily, 0 Refills, Maintenance, 03/23/23 11:10:00 EDT, Partial fill upon patient request if the prescription is for a schedule II opioid drug. Start Date: 03/23/23 Status: Ordered Multivitamins By Mouth, Daily, 0 Refills, Maintenance, 09/08/21 9:10:00 EDT, Partial fill upon patient request ifthe prescription is for a schedule II opioid drug. Start Date: 09/08/21 Status: Ordered Problem List Condition Confirmation Course Effective Dates Status Health St [facility] Informant Mild binge-eating disorder, in partial remission Confirmed Active Morbid obesity Confirmed Active Severe obesity Confirmed Active Social History Social History Type Response Smoking Status Never smoker entered on: 04/23/14 Sex Patient Care team information Care Team Personnel Name: Isabel Meza DO Position: [facility] Physician (General Medicine) Member Role: PCP Address: Address: [address] [place] [address] Name: Lynn Pineda RN Position: [facility] RN Member Role: Primary Care Nurse Name: Montserrat Serrano Position: [facility] Outreach Member Role: Lifetime Consulting Physician Care Team Related Persons Name: PADDY WALDEN Address: [address] [address]
--- OUTSIDE RECORDS SUMMARY | 2023-12-16 16:39 | XMS_ITS | Continuity of Care Document ---
Author Name Unknown Organization [facility] e Medicine Address [address] [place] [address]- Care Team Providers Care Legal Research Analyst Name Role Phone Kaela Alla Isabel Primary Care Nikkie moody Encounter [facility] Date(s): 03/23/23 - 04/22/23 [facility] Reproductive Medicine [address] [place] [id number] Attending Physician: Mikey Grey Admitting Physician: Mikey Grey Referring Physician: AdmtrMikey Allergies, Adverse Reactions, Alerts No Known Allergies Medications Clomid 50 mg oral tablet 2 tablet = 100 mg, By Mouth, Daily, 2 tab by mouth daily for 5 days beginning on the 5TH day of menstrual cycle, # 10 tablet, 0 Refills, Maintenance, 03/23/23 15:59:00 EDT, [facility], [id number], Partial fill upon patient request if the pres... Start Date: 03/23/23 Stop Date: 03/28/23 Status: Ordered doxycycline hyclate 100 mg oral capsule 1 capsule = 100 mg, By Mouth, 2 times a day, start 2 days prior to procedure, # 10 capsule, 0 Refills, Maintenance, 10/26/21 13:32:00 EST, [facility]/pharmacy #[id number], Partial fill upon patient request if theprescription [...] Team Personnel Name: Isabel Meza DO Position: [facility] Physician - Primary Care Member Role: PCP Address: Address: [address] [place] [address]- Name: Lynn Pineda RN Position: [facility] RN Member Role: Primary Care Nurse Name: Montserrat Serrano Position: [facility] Outreach Member Role: Lifetime Consulting Physician Care Team Related Persons Name: PADDY WALDEN Address: [address] [address]
--- OUTSIDE RECORDS SUMMARY | 2023-12-16 16:39 | XMS_ITS | Continuity of Care Document ---
Author Name Unknown Organization [facility] Address [address] [place] [address]- Care Team Providers Care Sales Estimator Name Role Phone Kaela Alla Isabel [place] Primary [facility] Nikkie moody Encounter [facility] [id number] Date(s): 03/23/23 - 03/30/23 [facility] [address], 4[address] [place] [address]- Attending Physician: Edita Jauregui MD Allergies, Adverse Reactions, Alerts No Known Allergies Medications Clomid 50 mg oral tablet 2 tablet = 100 mg, By Mouth, Daily, 2 tab by mouth daily for 5 days beginning on the 5TH day of menstrual cycle, # 10 tablet, 0 Refills, Maintenance, 03/23/23 15:59:00 EDT, [facility], [id number], Partial fill upon patient request if the pres... Start Date: 03/23/23 Stop Date: 03/28/23 Status: Ordered doxycycline hyclate 100 mg oral capsule 1 capsule = 100 mg, By Mouth, 2 times a day, start 2 days prior to procedure, # 10 capsule, 0 Refills, Maintenance, 10/26/21 13:32:00 EST, [facility]/pharmacy #[id number], Partial fill upon patient request if theprescription [...] obesity Confirmed Active Severe obesity Confirmed Active Vital Signs Most recent to oldest [Reference Range]: 1 Height 160.5 cm (03/23/23 11:08 AM) Weight 113.7 kg (03/23/23 11:08 AM) Pulse Rate [55-90 bpm] 93 bpm *H* (03/23/23 11:08 AM) Body Mass Index [18.5-24.99 kg/m2] 44.14 kg/m2 *>HHI* (03/23/23 11:08 AM) Blood Pressure [90-138/55-84 mm Hg] 132/ 83mm Hg (03/23/23 11:08 AM) Blood pressure sites Arm, right (03/23/23 11:08 AM) Weight Obtained Via Standing scale (03/23/23 11:08 AM) Social History Social History Type Response Smoking Status Never smoker entered on: 04/23/14 Sex Note * Obie Freire MA: PERFORM, SIGN, VERIFY Event Display: Patient Education/Instruction Authored Date: [facility] *[facility] Clinical Summary Name VILLA WALDEN Age 42 Years 1980 PCP [id number] Visit Date 03/23/2023 10:40:00 Additional Instructions: Scheduled Appointments?? Future Appointments ?No Future Appointments Scheduled Follow-Up Instructions ?? Diagnosis Medications: Please continue your medications until treatment is completed or stopped by your provider. Discuss any questions related to medications with your provider. New Medications [id number], [address] [place] [phone], [phone] ClomiPHENE (clomiPHENE 50 mg oral tablet) 2 tab(s) Oral Daily for 5 Days. 2 tabs by mouth daily for5 days begining on day 5 of cycle. Refills: 0. Next Dose: Medications to Continue with No Changes These medications were not printed or sent to your pharmacy Doxycycline (doxycycline hyclate 100 mg oral capsule) 1 capsule Oral twice a day for 5 Days. start 2 days prior to procedure. Refills: 0. Next Dose: Multivitamin, ( Multivitamins) Oral Daily. Next Dose: Omeprazole Oral Daily. Next Dose: Allergy Info:?? NKA Medications Given This Visit Future Orders ?Nicotine Level? Order Date:03/23/23?- Complete within?6 months ?FSH? Order Date:03/23/23?- Complete within?6 months ?Anti Mullerian Hormone? Order Date:03/23/23?- Complete within?6 months ?LH? Order Date:03/23/23?- Complete within?6 months ?TSH with T4 Reflex (Adults Only)? Order Date:03/23/23?- Complete within?6 months ?Prolactin Level? Order Date:03/23/23?- Complete within?6 months ?Estradiol (Female >= 16yrs)? Order Date:03/23/23?- Complete within?6 months ?FSH? Order Date:03/23/23?- Complete within?6 months ?LH? Order Date:03/23/23?- Complete within?6 months ?Estradiol (Female >= 16yrs)? Order Date:03/23/23?- Complete within?6 months Vital Signs Height 160.5 cm Weight 113.7 kg BMI 44.14 kg/m2 Blood Pressure 132 mm Hg/83 mm Hg Temperature Pulse Rate 93 bpm Respiratory Rate 02 Sat Mode of Delivery / You can now view a summary of your hospital visit from the comfort of your home through a free online portal called [employer]. [employer] is a website that allows you to securely view your medical information including discharge summary, medications and follow-up visits. ??You can alsosend a secure electronic message to your doctor???s office to request appointments, renew medications or just ask a question. You can enroll at [email or web address] or register during your next office visit. Disclaimer:?? The information provided is of a general nature and is intended to be used in conjunction with the recommendations and advice of your health care practitioner. ??Every effort has been made to ensure that the information provided is accurate and complete at the time it is provided to you however, as your needs change, or, as new ??information becomes available, different or additional instructions may be required. If you have questions, please consult with your primary care provider or pharmacist, as appropriate. ??This information is not intended to serve as substitution for assessment and evaluation by a qualified health care provider. If you do not have a primary care provider, you may find a [facility] provider by calling [facility] [employer] at [phone]. For information about the plan of care including goals and instructions for your diagnosis, please see the patient education orders section of this document. Patient Education Materials?? The content of this educational material or handout may have been modified, supplemented, or adapted from its original content and format to support your individualized medical care. Additional Provider Instructions: Referral sent for partner to Dr. colbert in Urology. Script for clomid sent to [facility] in [place]. Pt to follow providers instructions Patient Care team information Care Team Personnel Name: Isabel Meza DO Position: [facility] Physician (General Medicine) Member Role: PCP Address: Address: [address] [place] [id number] Name: Lynn Pineda RN Position: [facility] RN Member Role: Primary Care Nurse Name: Montserrat Serrano Position: [facility] Outreach Member Role: [employer] Physician Care Team Related Persons Name: PADDY WALDEN Address: [address] [address]
[2023-12-16] MEDS: 0.9 % Sodium Chloride 1,000 ML 999 ML IV (16:52)
[2023-12-16] MEDS: Morphine Sulfate 4 MG/ML CARTRIDGE IVPUSH (16:52)
[2023-12-16] MEDS: ondansetron HCL 4 MG/2 ML VIAL IVPUSH (16:52)
[2023-12-16] MEDS: Diatrizoate Meglumine, Sodium 30 ML SOLUTION PO (18:02)
[2023-12-16] MEDS: iohexoL 350 MG/ML 100 ML INFUS..BTL IV (18:02)
[2023-12-16 18:40] VITALS: BP 107/59; PULSE 81; RESP 20; TEMP 36.3; O2SAT 99
[2023-12-16 19:46] LABS: Appearance Urine Clear; Color Urine Yellow; Glucose Urine UA Negative (Negative); Leukocyte Esterase Urine Negative (Negative); Nitrite Urine Negative (Negative); PH 5.5 (5.0-9.0); Specific Gravity - Urine >= 1.030 (1.005-1.025); UMIC TRIGGER UACC YES; Urine Blood Large (3+) (Negative); Urine Ketones 40 mg/dL (Negative); Urine Protein Negative (Neg-Trace)
[2023-12-16 19:48] LABS: Bacteria Urine 1+ (None Seen); Hyaline Casts Urine 0-2 /LPF (0-2); WBC Urine 0-5 /HPF (0-5)
== END 2023-12-16 20:04 | disposition home or self-care (01) ==
PROVIDERS: Registered Nurse Emergency; Emergency Provider Emergency Medicine Emergency Medical Services
DX: R07.89 Other chest pain (principal); K52.9 Noninfective gastroenteritis and colitis, unspecified; R11.2 Nausea with vomiting, unspecified; Z11.52 Encounter for screening for COVID-19
CPT/HCPCS: 71046; 74177; 80053; 81001; 84484; 84702; 85025; 85610; 87502; 87635; 93005; 96361; 96374; 96375; 99284; 99285; J2270; J2405; Q9967

== ENCOUNTER → 2023-12-16 15:17 | Outpatient (BNV) | payer OTHER, SELFPAY | PROVIDERS: Emergency Provider Emergency Medicine Emergency Medical Services; Visit Provider Internal Medicine Cardiovascular Disease | DX: R07.9 Chest pain, unspecified (principal) | CPT/HCPCS: 93010 ==

== ENCOUNTER 2025-01-23 18:57 | Emergency (ER) | payer OTHER, SELFPAY ==
--- NOTE | ~2025-01-23 | CT_ITS ---
CLINICAL HISTORY: L flank pain, urinary sxs CT abdomen and pelvis without contrast Comparison: CT/SR - CT ABDOMEN PELVIS W IV CON - 12/16/23 18:00 EST Findings: Lung bases clear. Normal liver, spleen, pancreas, and adrenal glands. Unremarkable kidneys, ureters, and urinary bladder. No free fluid or free air in the abdomen or pelvis. No significant abnormality of the stomach, small bowel, or colon. Sleeve gastrectomy changes. Uterus and ovaries within normal limits. No acute or suspicious bone lesion. IMPRESSION: No acute findings. This document has been electronically signed by: Dean Guallpa MD on 01/23/2025 20:26:21
[2025-01-23 19:35] VITALS: BP 106/77; PULSE 66; RESP 18; TEMP 37.1; O2SAT 100; BMI 27.3
--- NOTE | 2025-01-23 19:37 | ED.GENADULT ---
HPI - General Adult General Chief complaint: Abdominal Pain Stated complaint: BACK PAIN; KNOT IN UPPER STOMACH AREA Time Seen by Provider: 01/24/25 00:03 Source: patient Mode of arrival: ambulatory Limitations: no limitations History of Present Illness ED Provider: HPI narrative: patient complaining of left flank since yesterday also complaining of pain in the mid abdomen feel knot moving no nausea no vomiting no diarrhea no fever no chills patient has had labs and urine done prior to my evaluation which was normal also had CT scan abdomen done which was negative for any acute pathology Related Data Previous Rx's ?Medication ?Instructions ?Recorded ondansetron HCl 4 mg tablet 4 mg PO Q8H PRN nausea and 06/03/21 (Zofran) vomiting #10 tabs cyclobenzaprine 10 mg tablet 10 mg PO BEDTIME #14 tabs 08/18/21 meloxicam 15 mg tablet 15 mg PO DAILY #14 tabs 08/18/21 cyclobenzaprine 10 mg tablet 10 mg PO TID PRN muscle spasm #14 02/18/22 tabs lidocaine 5 % topical patch 1 patch topical DAILY #15 ea 02/18/22 (Lidoderm) naproxen 500 mg tablet 500 mg PO BID PRN pain #20 tabs 02/18/22 ondansetron 4 mg disintegrating 4 mg PO Q8H PRN nausea and 12/21/22 tablet vomiting #10 tabs ibuprofen 600 mg tablet 600 mg PO Q6H PRN pain #20 tabs 01/25/23 tramadol 50 mg tablet 50 mg PO Q6H PRN pain #20 tabs 01/24/25 Allergies Allergy/AdvReac Type Severity Reaction Status Date / Time No Known Allergies Allergy Verified 01/23/25 19:37 Review of Systems Review of Systems: Yes all other systems are reviewed and are negative PMFSH Past Medical History Medical History Bipolar 1 disorder Lumbar herniated disc Migraine No known health problems Surgical History Hx of cholecystectomy H/O gastric sleeve Social History Social History Alcohol intake: never Patient Tobacco Use Status: Never used Tobacco Physical Exam ED Vital Signs: BMI result Body Mass Index 27.3 Appearance: Alert. Oriented X3. No acute distress. Eyes: no pallor or icterus ENT: Pharynx normal. Oral Mucosa moist Neck: Normal inspection. Neck supple. CVS: Normal heart rate and rhythm. Pulses normal. Respiratory: No respiratory distress. Equal air entry bilateral, no wheezing/rales/rhonchi Abdomen: Soft and nontender. Bowel sounds are present, no mass palpable, no CVA tenderness Skin: Skin warm and dry. Normal skin color. Normal skin turgor. Extremities: No lower extremity edema. No calf tenderness back: diffuse left flank tenderness Neuro: Oriented X 3. No motor deficit. No sensory deficit.No cerebellar signs , cranial nerves II-XII intact Course Course Course Narrative: This is an RME: Additional HPI, ROS, PE not included below will be deferred to primary provider. RME assessment and note performed by: Katie Tomas PA-C This is a 44-year-old female who presents emergency department with complaints of left-sided flank pain with urinary retention. Also reports abdominal lump to mid abdomen which she noticed yesterday > nontender, non incarcerated. He was to be a ventral hernia. Will obtain labs, UA, CT abdomen and pelvis. Further ER evaluation needed. Plan: Labs, UA, CT abdomen and pelvis Medications Administered Discontinued Medications Generic Name Dose Route Start Last Admin Trade Name Freq PRN Reason Stop Dose Admin Tramadol HCl 50 mg 01/24/25 00:15 01/24/25 00:38 Tramadol Hcl 50 Mg Tablet PO 01/24/25 00:16 50 mg ONCE ONE Administration Medical Decision Making Medical Decision Making [facility] Narrative: patient with nonspecific flank tenderness CT scan negative for acute no mass palpable in the abdomen will discharge patient advised follow up with PCP Differential Diagnosis Differential Diagnoses: The differential diagnosis associated with the presentation includes kidney stone/ UTI/ abdominal mass Lab Data [facility] Lab Attestation statement: I reviewed the patient's lab results. 01/23/25 20:23 01/23/25 20:23 Labs: Lab Results 01/23/25 01/23/25 Range/Units 20:23 23:18 WBC 4.9 (4.8-10.8) X10*3/uL RBC 4.01 L (4.20-5.50) X10*6/uL Hgb 11.4 L D (12.0-16.0) g/dl Hct 35.4 L D (37.0-47.0) % MCV 88.3 (80.0-98.0) fL MCH 28.4 (27.0-33.0) pg MCHC 32.2 (31.0-35.0) g/dl RDW 12.3 (11.0-16.0) % Plt Count 266 (160-400) X10*3/uL MPV 9.5 (9.4-12.3) fL Immature Gran % (Auto) 0.2 (0.0-0.4) % Neut % (Auto) 33.4 L (45-73) % Lymph % (Auto) 53.3 H (20-40) % [place] % (Auto) 10.9 (2-11) % Eos % (Auto) 1.4 (0-4) % Baso % (Auto) 0.8 (0-2) % Lymph # (Auto) 2.6 (1.2-4.9) X10*3/uL [place] # (Auto) 0.5 (0.1-1.2) X10*3/uL Eos # (Auto) 0.1 (0.0-0.4) X10*3/uL Baso # (Auto) 0.0 (0.0-0.2) X10*3/uL Abs Immat Gran (auto) 0.01 (0.00-0.03) X10*3/uL Absolute Neuts (auto) 1.6 L (2.0-8.3) x10*3/uL Absolute Nucleated RBC 0.000 (0.0-0.012) X10*3/uL Nucleated RBC % (auto) 0.0 (0.0-0.2) /100WBC Sodium 140 (135-145) mmol/L Potassium 4.2 (3.3-5.1) mmol/L Chloride 110 H (96-108) mmol/L Carbon Dioxide 23 (22-29) mmol/L Anion Gap 11 L (12-20) BUN 10 (9-16) mg/dL Creatinine 0.71 (0.5-1.4) mg/dL Estim Creat Clear Calc 94.8 Estimated GFR > 60 Random Glucose 99 (60-115) mg/dL Calcium 8.6 D (8.4-10.2) mg/dL Magnesium 1.9 (1.6-2.6) mg/dL Total Bilirubin 0.6 (0.0-1.0) mg/dL Direct Bilirubin 0.2 (0.0-0.5) mg/dL AST 38 H (5-31) U/L ALT 57 H (0-31) U/L Alkaline Phosphatase 151 H (39-117) U/L Total Protein 7.4 (6.5-8.0) g/dL Albumin 4.0 (3.5-5.0) g/dL Beta HCG, Quant < 2 mIU/mL Urine Color Yellow Urine Appearance Clear Urine pH 6.0 (5.0-9.0) Ur Specific [place] 1.020 (1.005-1.025) Urine Protein Negative (Neg-Trace) mg/dL Urine Glucose (UA) Negative (Negative) mg/dL Urine Ketones Negative (Negative) mg/dL Urine Blood Negative (Negative) Urine Nitrite Negative (Negative) Ur Leukocyte Esterase Negative (Negative) Independent Interpretation I performed an independent interpretation of an: CT Scan Radiology Impression Discussion of test interpretation with radiology: I have reviewed the radiologist's reading. Radiologist Impression: negative Discharge Plan Discharge Clinical Impression: Low back pain Patient Disposition: Home, Self-Care Instructions: Low Back Strain (ED) Additional Instructions: your CT scan and blood and urine workup is negative for acute pathology likely cause of pain is muscular Tramadol for severe pain follow up with your PCP Prescriptions: New tramadol 50 mg tablet 50 mg PO Q6H PRN (Reason: pain) Qty: 20 0RF No Action meloxicam 15 mg tablet 15 mg PO DAILY Qty: 14 0RF cyclobenzaprine 10 mg tablet 10 mg PO BEDTIME Qty: 14 0RF ondansetron HCl [Zofran] 4 mg tablet 4 mg PO Q8H PRN (Reason: nausea and vomiting) Qty: 10 0RF naproxen 500 mg tablet 500 mg PO BID PRN (Reason: pain) Qty: 20 0RF cyclobenzaprine 10 mg tablet 10 mg PO TID PRN (Reason: muscle spasm) Qty: 14 0RF lidocaine [Lidoderm] 5 % adhesive patch,medicated 1 patch topical DAILY Qty: 15 0RF Rx Instructions: leave on most painful area for up to 12 hrs ondansetron 4 mg tablet,disintegrating 4 mg PO Q8H PRN (Reason: nausea and vomiting) Qty: 10 0RF ibuprofen 600 mg tablet 600 mg PO Q6H PRN (Reason: pain) Qty: 20 0RF Interventions: ED Discharge Assessment Last Done: 01/24/25 00:44 Discharge Date/Time: 01/24/25 00:45 Print Language: Yakut
[2025-01-23 20:27] LABS: MANUAL DIFF FLAG NO
[2025-01-23 20:28] LABS: Basophils Percent Auto 0.8 % (0-2); Eosinophils Absolute Auto 0.1 X10*3/uL (0.0-0.4); Eosinophils Percent Auto 1.4 % (0-4); Hematocrit 35.4 % (37.0-47.0); Hemoglobin 11.4 g/dl (12.0-16.0); Imm Gran Abs Auto 0.01 X10*3/uL (0.00-0.03); Imm Gran Pct Auto 0.2 % (0.0-0.4); Lymphocytes Absolute Auto 2.6 X10*3/uL (1.2-4.9); Lymphocytes Percent Auto 53.3 % (20-40); Mean Corpuscular HGB Conc 32.2 g/dl (31.0-35.0); Mean Corpuscular Hemoglobin 28.4 pg (27.0-33.0); Mean Corpuscular Volume 88.3 fL (80.0-98.0); Mean Platelet Volume 9.5 fL (9.4-12.3); Monocytes Absolute Auto 0.5 X10*3/uL (0.1-1.2); Monocytes Percent Auto 10.9 % (2-11); Neutrophils Absolute Auto 1.6 x10*3/uL (2.0-8.3); Neutrophils Percent Auto 33.4 % (45-73); Platelet Count 266 X10*3/uL (160-400); Red Blood Count 4.01 X10*6/uL (4.20-5.50); Red Cell Distribution Width 12.3 % (11.0-16.0); White Blood Count 4.9 X10*3/uL (4.8-10.8)
[2025-01-23 20:44] LABS: Alanine Aminotransferase 57 U/L (0-31); Alkaline Phosphatase 151 U/L (39-117); Anion Gap 11 (12-20); Aspartate Amino Transferase 38 U/L (5-31); Bilirubin Direct 0.2 mg/dL (0.0-0.5); Bilirubin Total 0.6 mg/dL (0.0-1.0); Blood Urea Nitrogen 10 mg/dL (9-16); Calcium 8.6 mg/dL (8.4-10.2); Carbon Dioxide 23 mmol/L (22-29); Chloride 110 mmol/L (96-108); Creatinine Clr Calc Pharmacy 94.8; Estimated Glomerular Filt Rate > 60; Glucose Random 99 mg/dL (60-115); Magnesium 1.9 mg/dL (1.6-2.6); Potassium 4.2 mmol/L (3.3-5.1); Sodium 140 mmol/L (135-145); Total Protein 7.4 g/dL (6.5-8.0)
[2025-01-23 20:51] LABS: HCG Quantitative < 2 mIU/mL
[2025-01-23 22:13] VITALS: BP 118/58; PULSE 73; RESP 18; TEMP 37.1; O2SAT 100
[2025-01-23 23:32] LABS: Appearance Urine Clear; Color Urine Yellow; Glucose Urine UA Negative (Negative); Leukocyte Esterase Urine Negative (Negative); Nitrite Urine Negative (Negative); Urine Blood Negative (Negative); Urine Ketones Negative (Negative); Urine Protein Negative (Neg-Trace)
[2025-01-24] MEDS: traMADoL HCL 50 MG TABLET PO (00:38)
[2025-01-24 00:44] VITALS: BP 123/72; PULSE 69; RESP 16; TEMP 36.7; O2SAT 97
== END 2025-01-24 00:45 | disposition home or self-care (01) ==
PROVIDERS: Physician Assistant Medical; Emergency Provider Internal Medicine
DX: R10.2 Pelvic and perineal pain (principal); R33.9 Retention of urine, unspecified; M54.50 Low back pain, unspecified; Z79.899 Other long term (current) drug therapy
CPT/HCPCS: 36415; 74176; 80048; 80076; 81003; 83735; 84702; 85025; 99284

== ENCOUNTER → 2025-01-23 19:39 | Outpatient (BNV) | payer OTHER, SELFPAY | PROVIDERS: Visit Provider Radiology Diagnostic Radiology | DX: R10.9 Unspecified abdominal pain (principal); M54.9 Dorsalgia, unspecified; R33.9 Retention of urine, unspecified | CPT/HCPCS: 74176 ==